=== PATIENT | male | born 1945 | race African-American/Black ===

== ENCOUNTER 2016-10-27 09:25 | Emergency (ER) | payer MEDICARE, OTHER ==
[2016-10-27 09:34] VITALS: BP 158/83
--- NOTE | 2016-10-27 09:40 | ER Document Report ---
ED Fall - General Chief Complaint: Head Injury with LOC Stated Complaint: FELL/SHOULDER PAIN Time Seen by Provider: 10/27/16 09:39 Notes: The patient is a 71-year-old male, past medical history DVT (on Coumadin), presents with left shoulder pain and a head injury after he was dreaming and rolled off the side of his bed. He hit the left side of his head and left shoulder and had a brief LOC. He does not have a headache. Denies neck pain, numbness, tingling, chest pain, shortness of breath, abdominal pain, nausea, vomiting or fevers. TRAVEL OUTSIDE OF THE [place] IN LAST 30 DAYS: No - Related data Allergies/Adverse Reactions: Sulfa (Sulfonamide Antibiotics) Allergy (Verified 10/30/11 10:34) Past Medical History - General Information source: Patient - Social History Smoking Status: Current Every Day Smoker Family History: Reviewed & Not Pertinent Patient has suicidal ideation: No Patient has homicidal ideation: No - Past Medical History Cardiac Medical History: Reports: Hx Coronary Artery Disease, Hx Hypertension Pulmonary Medical History: Denies: Hx Tuberculosis Renal/ Medical History: Denies: Hx Peritoneal Dialysis Musculoskeltal Medical History: Reports Hx Arthritis Past Surgical History: Reports: Hx Abdominal Surgery, Hx Bowel Surgery - 2009 for bowel obstruction. Denies: Hx Appendectomy, Hx Cholecystectomy, Hx Coronary Artery Bypass Graft, Hx Gastric Bypass Surgery, Hx Herniorrhaphy, Hx Pacemaker, Hx Tonsillectomy - Immunizations Hx Diphtheria, Pertussis, Tetanus Vaccination: No Review of Systems - Review of Systems Notes: REVIEW OF SYSTEMS: CONSTITUTIONAL: -fevers, -chills EENT: -eye pain, -difficulty swallowing, -nasal congestion CARDIOVASCULAR:-chest pain, -syncope. RESPIRATORY: -cough, -SOB GASTROINTESTINAL: -abdominal pain, - nausea, -vomiting, -diarrhea GENITOURINARY: -dysuria, -hematuria MUSCULOSKELETAL: +left shoulder pain, -back pain, -neck pain SKIN: -rash or skin lesions. HEMATOLOGIC: -easy bruising or bleeding. LYMPHATIC: -swollen, enlarged glands. NEUROLOGICAL: -altered mental status or loss of consciousness, -headache, - neurologic symptoms PSYCHIATRIC: -anxiety, -depression. ALL OTHER SYSTEMS REVIEWED AND NEGATIVE. Physical Exam - Vital signs Vitals: Pulse Resp BP Pulse Ox 91 16 158/83 H 97 10/27/16 09:32 10/27/16 09:32 10/27/16 09:32 10/27/16 09:32 - Notes Notes: PHYSICAL EXAMINATION: GENERAL: Well-appearing, well-nourished and in no acute distress. HEAD: Atraumatic, normocephalic. EYES: Pupils equal round and reactive to light, extraocular movements intact, sclera anicteric, conjunctiva are normal. ENT: nares patent, oropharynx clear without exudates. Moist mucous membranes. NECK: Normal range of motion, supple without lymphadenopathy LUNGS: Breath sounds clear to auscultation bilaterally and equal. No wheezes rales or rhonchi. HEART: Regular rate and rhythm without murmurs ABDOMEN: Soft, nontender, normoactive bowel sounds. No guarding, no rebound. No masses appreciated. EXTREMITIES: Tenderness over left lateral shoulder, painful range of motion, no pitting or edema. No cyanosis. NEUROLOGICAL: Cranial nerves grossly intact. Normal speech, normal gait. Normal sensory, motor, and reflex exams. PSYCH: Normal mood, normal affect. SKIN: Warm, Dry, normal turgor, no rashes or lesions noted. Course - Re-evaluation Re-evalutation: Patient without any neuro symptoms. CT head does not show any bleeds and left shoulder x-ray does not show any fractures or dislocations. Slight leukocytosis most likely reactive from fall because he does not have any signs of infection. Fall was strictly mechanical. Because patient is on Coumadin, discussed the possibility of delayed bleed and given return precautions. Him and his relative at bedside understand. - Vital Signs Vital signs: Temp Pulse Resp BP Pulse Ox 97.7 F 91 16 158/83 H 97 10/27/16 09:33 10/27/16 09:32 10/27/16 09:32 10/27/16 09:32 10/27/16 09:32 - Laboratory Result Diagrams: 10/27/16 10:05 Laboratory results interpreted by me: 10/27/16 10/27/16 10:05 10:05 WBC 12.3 H RDW 14.1 H Plt Count 136 L Absolute Neutrophils 9.2 H PT 25.8 H APTT 45.5 H - Diagnostic Test Radiology reviewed: Image reviewed, Reports reviewed Radiology results interpreted by me: CT Head: NAD Left shoulder x-ray: NAD Discharge - Discharge Clinical Impression: Head injury Qualifiers: Encounter type: initial encounter Qualified Code(s): S09.90XA - Unspecified injury of head, initial encounter Contusion of shoulder, left Qualifiers: Encounter type: initial encounter Qualified Code(s): S40.012A - Contusion of left shoulder, initial encounter Condition: Good Disposition: HOME, SELF-CARE Additional Instructions: Your CAT scan and x-rays do not show any head bleeds or broken bones. Since you are on Coumadin, there is always a possibility of a delayed head bleed. If you notice weakness, numbness or change in mental status, return immediately to the emergency room. Contusion Your injury has resulted in a contusion -- a crushing of the deep tissues. No injury to important structures was detected during the physician's exam. Contusions vary in the amount of pain they cause, and in the length of time required for healing. Typically, the area will become bruised, and will remain painful to touch for two or three weeks. However, most patients are back to working and playing within a few days. After the initial period of rest and cold-packs, your symptoms (together with the doctor's recommendations) will determine how rapidly you can get back to full activity. Usually this means "do what feels okay, but don't do things that hurt." If re-examination was recommended, it's important to follow up as instructed. Call the doctor or return any time if pain increases, if swelling becomes severe, if you develop numbness or weakness in an injured extremity, or if any other alarming symptoms occur. Head Injury Your examination shows no evidence of brain injury. You can therefore be safely observed at home. Give clear liquids only for the first eight hours. Acetaminophen or ibuprofen can safely be given for pain. Follow the directions on the bottle. Do not give any medication that may alter her/his level of alertness. Limit activity for the first 24 hours -- bed rest is advisable at first. Several times during the first 24 hours, check the patient to see if the pupils are equal in size to each other, that the patient is easily arousable, and responds normally. Contact your doctor or go to the hospital if any of the following things occur: Persistent or projectile vomiting, a seizure, confusion , unequal pupil size, difficulty in arousing the patient, worsening or continued headache, or failure to improve as expected.
[2016-10-27 10:15] LABS: ABSOLUTE EOSINOPHILS # (AUTO) 0.1 10^3/uL (0.0-0.6); ABSOLUTE LYMPHOCYTES (AUTO) 1.7 10^3/uL (0.5-4.7); ABSOLUTE MONOCYTES (AUTO) 1.2 10^3/uL (0.1-1.4); ABSOLUTE NEUT (AUTO) 9.2 10^3/uL (1.7-8.2); BASOPHILS % (AUTO) 0.4 % (0-2); EOSINOPHILS % (AUTO) 0.6 % (0-6); HEMATOCRIT 47.8 % (37.9-51.0); HEMOGLOBIN 15.9 g/dL (13.5-17.0); HGB HCT DIFFERENCE -0.1; MEAN CORPUSCULAR HEMOGLOBIN 30.8 pg (27.0-33.4); MEAN CORPUSCULAR HGB CONC 33.2 g/dL (32.0-36.0); MEAN CORPUSCULAR VOLUME 93 fl (80-97); MONOCYTES % (AUTO) 9.6 % (3-13); RED BLOOD COUNT 5.15 10^6/uL (4.35-5.55); RED CELL DISTRIBUTION WIDTH 14.1 % (11.5-14.0); SEGMENTED NEUTROPHILS % (AUTO) 75.4 % (42-78); WHITE BLOOD COUNT 12.3 10^3/uL (4.0-10.5)
[2016-10-27 10:21] LABS: PROTHROMBIN TIME 25.8 SEC (11.4-15.4)
[2016-10-27 10:22] LABS: PARTIAL THROMBOPLASTIN TIME 45.5 SEC (23.5-35.8)
== END 2016-10-27 11:09 | disposition home or self-care (01) ==
LOC: ER 09:25
DX: S06.9X9A Unspecified intracranial injury with loss of consciousness of unspecified duration, initial encounter (principal); S40.012A Contusion of left shoulder, initial encounter; M25.512 Pain in left shoulder; W06.XXXA Fall from bed, initial encounter; Y93.84 Activity, sleeping; I10 Essential (primary) hypertension; I25.10 Atherosclerotic heart disease of native coronary artery without angina pectoris; F17.200 Nicotine dependence, unspecified, uncomplicated; D72.829 Elevated white blood cell count, unspecified; Z86.718 Personal history of other venous thrombosis and embolism; Z79.01 Long term (current) use of anticoagulants; Z88.2 Allergy status to sulfonamides
CPT/HCPCS: 36415; 70450; 85025; 85610; 85730; 99284

== ENCOUNTER 2017-08-18 09:55 | Emergency (ER) | payer MEDICARE, OTHER ==
--- NOTE | 2017-08-18 10:39 | ER Document Report ---
ED Dizziness/Weakness - General Chief Complaint: Dizziness Stated Complaint: VOMITING Time Seen by Provider: 08/18/17 10:33 Information source: Patient Notes: Patient is a 72-year-old poor historian who presents today stating when he woke up he felt a little "lightheaded". He denies any vertigo. He states he vomited 1 with diarrhea 1. No blood in the vomit or diarrhea. Patient denies any chest pain, palpitations, and states some very mild intermittent epigastric discomfort before vomiting. He denies any radiation of the discomfort. He denies any pain at this time. Denies any calf pain, leg swelling, recent trips or travel. He denies any fevers. Patient has a remote history in the past of an obstruction in the bowel requiring surgery. Patient is also on Coumadin he believes is for "my upper heart not working right". Family believes this was for atrial fibrillation that he suffers intermittently. TRAVEL OUTSIDE OF THE [place] IN LAST 30 DAYS: No - HPI Patient complains to provider of: Other - See above Onset: Just prior to arrival - See above Onset/Duration: Gradual Quality of pain: Achy Severity: Mild Pain Level: Denies Associated symptoms: Other - See above - Related Data Allergies/Adverse Reactions: Sulfa (Sulfonamide Antibiotics) Allergy (Verified 08/18/17 09:56) Past Medical History - General Information source: Patient - Social History Smoking Status: Unknown if Ever Smoked Cigarette use (# per day): No Chew tobacco use (# tins/day): No Smoking Education Provided: No Frequency of alcohol use: None Drug Abuse: None Family History: Reviewed & Not Pertinent - Past Medical History Cardiac Medical History: Reports: Hx Coronary Artery Disease, Hx Hypertension Pulmonary Medical History: Denies: Hx Tuberculosis Renal/ Medical History: Denies: Hx Peritoneal Dialysis Musculoskeltal Medical History: Reports Hx Arthritis Past Surgical History: Reports: Hx Abdominal Surgery, Hx Bowel Surgery - 2009 for bowel obstruction. Denies: Hx Appendectomy, Hx Cholecystectomy, Hx Coronary Artery Bypass Graft, Hx Gastric Bypass Surgery, Hx Herniorrhaphy, Hx Pacemaker, Hx Tonsillectomy - Immunizations Hx Diphtheria, Pertussis, Tetanus Vaccination: No Review of Systems - Review of Systems Constitutional: denies: Fever EENT: denies: Eye discharge, Nose discharge Cardiovascular: denies: Chest pain, Palpitations Respiratory: denies: Short of breath Gastrointestinal: Diarrhea, Vomiting Genitourinary: denies: Dysuria Musculoskeletal: denies: Leg swelling Skin: Other - no hives. denies: Rash Neurological/Psychological: Other - no slurred speech -: Yes All other systems reviewed and negative Physical Exam - Vital signs Vitals: Resp Pulse Ox 18 100 08/18/17 10:19 08/18/17 10:19 Interpretation: Normal Notes: Reviewed vital signs and nursing note as charted by RN. CONSTITUTIONAL: Alert and oriented and responds appropriately to questions. Well -appearing; well-nourished HEAD: Normocephalic; atraumatic EYES: PERRL; no nystagmus ENT: Normal nose; no rhinorrhea; moist mucous membranes; pharynx without lesions noted NECK: Supple without meningismus; non-tender; no carotid bruits; no cervical lymphadenopathy, no masses CARD: Regular rate and rhythm; no murmurs RESP: Normal chest excursion without splinting or tachypnea; breath sounds clear and equal bilaterally ABD/GI: Normal bowel sounds; non-distended; soft, non-tender currently to deep palpation of all 4 quadrants of the abdomen. There no abdominal bruits or masses present BACK: The back appears normal and is non-tender to palpation EXT: Normal ROM in all joints; non-tender to palpation; no cyanosis, no effusions, no edema SKIN: No acute lesions noted NEURO: Cn 2-12 intact. Moves all extremities equally; Motor and sensory function intact PSYCH: The patient's mood and manner are appropriate. Grooming and personal hygiene are appropriate Course - Re-evaluation Re-evalutation: Given the history and physical we will obtain basic labs, abdominal labs, EKG and troponin, coagulation profile, a CT of the head, and reassess. I will also order a three-way abdominal x-ray. Patient has no chest pain, currently no abdominal tenderness, no focal neurological deficits. I would like to evaluate for possible small bleed, cardiac issue, or abdominal issue at this time. 08/18/17 10:43 EKG shows a heart of 71, normal sinus rhythm, normal axis, minimal J-point elevation in leads V2 and V3 without any reciprocal changes. Patient currently has no chest pain. 08/18/17 11:29 Labs and troponin as recorded. 08/18/17 11:44 CT scan of the head as recorded. 08/18/17 11:46 Patient walked to the bathroom and back with no difficulty. He denies any chest or abdominal pain at this time. 08/18/17 13:52 Patient still feels excellent. Second troponin is pending. Patient still denies any headache or lightheadedness. No repeat vomiting or diarrhea. Patient has had no symptoms of vertigo. I do not believe an MRI is necessary at this moment. If the repeat troponin is unremarkable, patient will be discharged home with strict return precautions and follow-up with the primary care physician. - Vital Signs Vital signs: Temp Pulse Resp BP Pulse Ox 97.5 F 20 168/95 H 96 08/18/17 10:37 08/18/17 13:00 08/18/17 10:38 08/18/17 13:00 - Laboratory Result Diagrams: 08/18/17 10:20 08/18/17 10:20 Laboratory results interpreted by me: 08/18/17 08/18/17 10:20 11:30 RDW 14.8 H PT 22.4 H Discharge - Discharge Clinical Impression: Lightheadedness, Vomiting and diarrhea Condition: Good Disposition: HOME, SELF-CARE Additional Instructions: Come back immediately for any repeat lightheadedness, any chest or abdominal pain, any persistent vomiting or diarrhea, or any other acute problems. Please follow-up with the primary care physician as we have discussed.
[2017-08-18 11:03] LABS: ABSOLUTE LYMPHOCYTES (AUTO) 1.6 10^3/uL (0.5-4.7); ABSOLUTE MONOCYTES (AUTO) 0.7 10^3/uL (0.1-1.4); ABSOLUTE NEUT (AUTO) 4.6 10^3/uL (1.7-8.2); BASOPHILS % (AUTO) 0.6 % (0-2); EOSINOPHILS % (AUTO) 0.6 % (0-6); HEMATOCRIT 48.2 % (37.9-51.0); LYMPHOCYTES % (AUTO) 22.8 % (13-45); MEAN CORPUSCULAR HEMOGLOBIN 30.4 pg (27.0-33.4); MEAN CORPUSCULAR HGB CONC 33.3 g/dL (32.0-36.0); MEAN CORPUSCULAR VOLUME 92 fl (80-97); MONOCYTES % (AUTO) 9.5 % (3-13); PLATELET COUNT 159 10^3/uL (150-450); RED BLOOD COUNT 5.26 10^6/uL (4.35-5.55); RED CELL DISTRIBUTION WIDTH 14.8 % (11.5-14.0); SEGMENTED NEUTROPHILS % (AUTO) 66.5 % (42-78); TOTAL CELLS COUNTED % (AUTO) 100 %
[2017-08-18 11:10] LABS: ALANINE AMINOTRANSFERASE 34 U/L (21-72); ALBUMIN 4.3 g/dL (3.5-5.0); ALKALINE PHOSPHATASE 40 U/L (38-126); ANION GAP 8 (5-19); ASPARTATE AMINO TRANSFERASE 29 U/L (17-59); BILIRUBIN,DIRECT 0.1 mg/dL (0.0-0.4); BILIRUBIN,TOTAL 0.4 mg/dL (0.2-1.3); BLOOD UREA NITROGEN 14 mg/dL (7-20); CALCIUM 9.7 mg/dL (8.4-10.2); CARBON DIOXIDE 29 mmol/L (22-30); CHLORIDE 105 mmol/L (98-107); GLUCOSE 108 mg/dL (75-110); LIPASE 255.6 U/L (23-300); POTASSIUM 4.1 mmol/L (3.6-5.0); SODIUM 141.6 mmol/L (137-145)
--- NOTE | 2017-08-18 11:25 | RADIOLOGY REPORT (SQ) ---
EXAM DESCRIPTION: ACUTE ABDOMEN SERIES COMPLETED DATE/TIME: 08/18/2017 11:03 am REASON FOR STUDY: 18, vomiting and diarrhea; h/o obstruction COMPARISON: None. NUMBER OF VIEWS: Three views. TECHNIQUE: Frontal chest, supine abdomen and upright/decubitus abdomen radiographic images acquired. LIMITATIONS: None. FINDINGS: CHEST: Nodular density right lower lung could be a nodule or nipple shadow. FREE AIR: None. No abnormal gas collections. BOWEL GAS PATTERN: Nonobstructive pattern. No dilated loops or air fluid levels. CALCIFICATIONS: No suspicious calcifications. HARDWARE: Clips left lower quadrant and pelvis. SOFT TISSUES: No gross mass or suggestion of organomegaly. BONES: No acute fracture. No worrisome bone lesions. OTHER: No other significant finding. IMPRESSION: No obstruction. Questionable small lung nodule. Consider two-view chest with nipple ma rkers or chest CT. TECHNICAL DOCUMENTATION: JOB ID: [id number] [employer]- All Rights Reserved Reading location - IP/workstation name: [email or web address]
--- NOTE | 2017-08-18 11:32 | RADIOLOGY REPORT (SQ) ---
EXAM DESCRIPTION: CT HEAD WITHOUT COMPLETED DATE/TIME: 08/18/2017 11:22 am REASON FOR STUDY: 18, dizzi on coumadin COMPARISON: None. TECHNIQUE: Axial images acquired through the brain without intravenous contrast. Images reviewed wi th bone, brain and subdural windows. Images stored on PACS. All CT scanners at this facility use dose modulation, iterative reconstruction, and/or weight based d osing when appropriate to reduce radiation dose to as low as reasonably achievable (ALARA). [facility]: Dose Right [facility]: CareDose [facility]: Dose Right [facility]: Teradose 4D [facility]: [employer] RADIATION DOSE: CT Rad equipment meets quality standard of care and radiation dose reduction techniq ues were employed. CTDIvol: 64.6 mGy. DLP: 1163 mGy-cm. mGy. LIMITATIONS: None. FINDINGS: VENTRICLES: Normal size and contour. CEREBRUM: No masses. No hemorrhage. No midline shift. No evidence for acute infarction. Normal gra y/white matter differentiation. No areas of low density in the white matter. CEREBELLUM: No masses. No hemorrhage. No alteration of density. No evidence for acute infarction. EXTRAAXIAL SPACES: No fluid collections. No masses. ORBITS AND GLOBE: No intra- or extraconal masses. Normal contour of globe without masses. CALVARIUM: No fracture. PARANASAL SINUSES: No fluid or mucosal thickening. SOFT TISSUES: No mass or hematoma. OTHER: No other significant finding. IMPRESSION: NORMAL BRAIN CT WITHOUT CONTRAST. EVIDENCE OF ACUTE STROKE: NO. COMMENT: Quality ID # [id number]: Final reports with documentation of one or more dose reduction techniques (e.g., Automated exposure control, adjustment of the mA and/or kV according to patient size, use of iterative reconstruction technique) TECHNICAL DOCUMENTATION: JOB ID: [id number] [employer]- All Rights Reserved Reading location - IP/workstation name: [email or web address]
[2017-08-18] MEDS ORDERED: ONDANSETRON HCL INJ/PF 4 MG/2 ML SDV IV ONE (11:44)
[2017-08-18 11:49] LABS: INTERNATIONAL RATION (INR) 1.85; PROTHROMBIN TIME 22.4 SEC (11.4-15.4)
[2017-08-18 14:36] VITALS: BP 160/98
--- NOTE | 2017-08-18 17:58 | EKG REPORT ---
SEVERITY:- BORDERLINE ECG - SINUS RHYTHM BORDERLINE ST ELEVATION, ANTERIOR LEADS, UNCHANGED FROM 08/24/14 EKG. : Confirmed by: Vishnu Nichols MD 18-Aug-2017 17:57:56
== END 2017-08-18 14:43 | disposition home or self-care (01) ==
LOC: ER 09:55
DX: R42 Dizziness and giddiness (principal); R11.10 Vomiting, unspecified; R19.7 Diarrhea, unspecified; I25.10 Atherosclerotic heart disease of native coronary artery without angina pectoris; I10 Essential (primary) hypertension; Z87.19 Personal history of other diseases of the digestive system; Z98.890 Other specified postprocedural states; Z79.01 Long term (current) use of anticoagulants; Z88.2 Allergy status to sulfonamides
CPT/HCPCS: 93005; 99285; 96374; 36415; 83690; 85025; 85610; 80076; 80048; 84484; 74022; 70450; 93010; J2405

== ENCOUNTER 2018-05-13 11:46 | Observation (INO) | payer MEDICARE, OTHER ==
--- NOTE | 2018-05-13 12:44 | ER Document Report ---
ED Medical Screen (RME) - General Chief Complaint: Diarrhea Stated Complaint: DIARRHEA Time Seen by Provider: 05/13/18 12:41 Notes: 72-year-old male patient reports onset diarrhea Saturday night. States he has diarrhea about every 30 minutes. He has had decreased appetite and some dizziness. He states the diarrhea looks like what ever it was the most recently had to eat. He did try Pepto-Bismol without any help. No recent antibiotics. I have greeted and performed a rapid initial assessment of this patient. A comprehensive ED assessment and evaluation of the patient, analysis of test results and completion of the medical decision making process will be conducted by additional ED providers. TRAVEL OUTSIDE OF THE [place] IN LAST 30 DAYS: No - Related Data Allergies/Adverse Reactions: Sulfa (Sulfonamide Antibiotics) Allergy (Verified 08/18/17 09:56) Past Medical History - Past Medical History Cardiac Medical History: Reports: Hx Coronary Artery Disease, Hx Hypertension Pulmonary Medical History: Denies: Hx Tuberculosis Renal/ Medical History: Denies: Hx Peritoneal Dialysis Musculoskeltal Medical History: Reports Hx Arthritis Past Surgical History: Reports: Hx Abdominal Surgery, Hx Bowel Surgery - 2010 for bowel obstruction. Denies: Hx Appendectomy, Hx Cholecystectomy, Hx Coronary Artery Bypass Graft, Hx Gastric Bypass Surgery, Hx Herniorrhaphy, Hx Pacemaker, Hx Tonsillectomy - Immunizations Hx Diphtheria, Pertussis, Tetanus Vaccination: No Physical Exam - Vital signs Vitals: Temp Pulse Resp BP Pulse Ox 97.4 F 92 20 129/73 H 98 05/13/18 12:03 05/13/18 12:03 05/13/18 12:03 05/13/18 12:03 05/13/18 12:03 Course - Vital Signs Vital signs: Temp Pulse Resp BP Pulse Ox 97.4 F 92 20 129/73 H 98 05/13/18 12:03 05/13/18 12:03 05/13/18 12:03 05/13/18 12:03 05/13/18 12:03 Doctor's Discharge - Discharge Referrals: EDUARDO DHILLON MD [Primary Care Provider] - Follow up as needed
[2018-05-13 13:19] LABS: APPEARANCE,URINE SLIGHTLY-CLOUDY; BILIRUBIN,URINE NEGATIVE (NEGATIVE); GLUCOSE, URINE NEGATIVE (NEGATIVE); KETONES,URINE 20 mg/dL (NEGATIVE); LEUKOCYTE ESTERASE,URINE NEGATIVE (NEGATIVE); NITRITE,URINE NEGATIVE (NEGATIVE); PROTEIN,URINE 30 mg/dL (NEGATIVE); URINE SPECIFIC GRAVITY 1.027; UROBILINOGEN,URINE NEGATIVE mg/dL (<2.0)
[2018-05-13 13:23] LABS: COLOR,URINE YELLOW
[2018-05-13] MEDS ORDERED: NORMAL SALINE 1000 ML 1,000 ML IV ONE ×2 (13:36→14:55)
--- NOTE | 2018-05-13 13:40 | ER Document Report ---
ED General - General Chief Complaint: Diarrhea Stated Complaint: DIARRHEA Time Seen by Provider: 05/13/18 12:41 TRAVEL OUTSIDE OF THE [place] IN LAST 30 DAYS: No - HPI Notes: Patient is a 72-year-old male that presents to the emergency department for chief complaint of diarrhea and lightheadedness. Patient reports diarrhea for the last 3 days. He states about every 20-30 minutes he has a small loose stool. He denies any black or bloody stools. Patient also states that for the last 2 days he has felt very lightheaded. His lightheadedness is worse with standing and relieved with sitting. When he feels lightheaded he becomes hot and nauseated. He denies any associated chest pain, shortness of breath, abdominal pain, fevers or chills. He denies recent antibiotic use or hospitalizations. He states he has not been able to eat or drink over the last 2 days because of nausea. Patient states he does take a blood thinner but is not sure what it is called or why he is taking it. Past Medical History: Hyperlipidemia Past Surgical History: Bowel obstruction surgery Social History: Daily tobacco. Denies drugs and alcohol Family History: Reviewed and noncontributory for presenting illness Allergies: Reviewed, see documented allergy list. REVIEW OF SYSTEMS: CONSTITUTIONAL : No fever No chills No diaphoresis No recent illness EENT: No vision changes No congestion No sore throat CARDIOVASCULAR: No chest pain No palpitations RESPIRATORY: No shortness of breath No cough No difficulty breathing GASTROINTESTINAL: No abdominal pain nausea No vomiting diarrhea GENITOURINARY: No dysuria No hematuria No difficulty urinating MUSCULOSKELETAL: No back pain No leg pain No arm pain SKIN: No rashes No lesions LYMPHATIC: No swollen, enlarged glands. NEUROLOGICAL: lightheadedness No headache No weakness No paresthesias PSYCHIATRIC: No anxiety No depression PHYSICAL EXAMINATION: Vital signs reviewed, nursing noted reviewed. GENERAL: Well-appearing, well-nourished and in no acute distress. HEAD: Atraumatic, normocephalic. EYES: Eyes appear normal, extraocular movements intact, sclera anicteric, conjunctiva are normal. ENT: nares patent, oropharynx clear without exudates. Dry mucous membranes. NECK: Normal range of motion, supple without lymphadenopathy LUNGS: Breath sounds clear to auscultation bilaterally and equal. No wheezes rales or rhonchi. HEART: Regular rate and rhythm without murmurs ABDOMEN: Soft, nontender, normoactive bowel sounds. No rebound, guarding, or rigidity. No masses appreciated. EXTREMITIES: Nontender, good range of motion, no pitting or edema. NEUROLOGICAL: No focal neurological deficits. Moves all extremities spontaneously Motor and sensory grossly intact on exam. PSYCH: Normal mood, normal affect. SKIN: Warm, Dry, normal turgor, no rashes or lesions noted on exposed skin - Related Data Allergies/Adverse Reactions: Sulfa (Sulfonamide Antibiotics) Allergy (Verified 08/18/17 09:56) Past Medical History - Social History Smoking Status: Current Every Day Smoker Frequency of alcohol use: None Drug Abuse: None Family History: Reviewed & Not Pertinent Patient has suicidal ideation: No Patient has homicidal ideation: No - Past Medical History Cardiac Medical History: Reports: Hx Coronary Artery Disease, Hx Hypertension Pulmonary Medical History: Denies: Hx Tuberculosis Renal/ Medical History: Denies: Hx Peritoneal Dialysis Musculoskeletal Medical History: Reports Hx Arthritis Past Surgical History: Reports: Hx Abdominal Surgery, Hx Bowel Surgery - 2009 for bowel obstruction. Denies: Hx Appendectomy, Hx Cholecystectomy, Hx Coronary Artery Bypass Graft, Hx Gastric Bypass Surgery, Hx Herniorrhaphy, Hx Pacemaker, Hx Tonsillectomy - Immunizations Hx Diphtheria, Pertussis, Tetanus Vaccination: No Physical Exam - Vital signs Vitals: Temp Pulse Resp BP Pulse Ox 97.4 F 92 20 129/73 H 98 05/13/18 12:03 05/13/18 12:03 05/13/18 12:03 05/13/18 12:03 05/13/18 12:03 Course - Re-evaluation Re-evalutation: 05/13/18 13:39 Vitals reviewed. Nursing notes reviewed. Patient started on IV hydration 05/13/18 16:07 Patient's lab work shows dehydration with hemoconcentrated hemoglobin of 16.3. He also has a mild hypernatremia. His renal function is normal as is his potassium. Patient is orthostatic positive and was given a second liter of normal saline. He is Hemoccult positive and anticoagulated on Coumadin. Patient's INR is subtherapeutic at 1.6. He has not had any bright red or melanotic bleeding in the ED. C. difficile and stool culture is currently pending. Patient has a normal WBC count so I am not highly suspicious for an infectious cause of his diarrhea. Because of his anticoagulation, GI bleed and orthostasis he will be admitted to the hospital for hydration and monitoring. Case discussed with Dr. Leija who is accepted admission. Patient is in agreement with this plan. Laboratory 05/13/18 05/13/18 05/13/18 12:50 12:50 13:26 WBC RBC Hgb Hct MCV MCH MCHC RDW Plt Count Seg Neutrophils % Lymphocytes % Monocytes % Eosinophils % Basophils % Absolute Neutrophils Absolute Lymphocytes Absolute Monocytes Absolute Eosinophils Absolute Basophils PT INR Sodium Cancelled 145.8 H Potassium Cancelled 3.8 Chloride Cancelled 109 H Carbon Dioxide Cancelled 24 Anion Gap Cancelled 13 BUN Cancelled 18 Creatinine Cancelled 0.89 Est GFR ( Amer) Cancelled > 60 Est GFR (Non-Af Amer) Cancelled > 60 Glucose Cancelled 99 Calcium Cancelled 9.4 Total Bilirubin Cancelled 0.3 Direct Bilirubin Cancelled 0.1 Neonat Total Bilirubin Cancelled Not Reportable Neonat Direct Bilirubin Cancelled Not Reportable Neonat Indirect Bili Cancelled Not Reportable AST Cancelled 39 ALT Cancelled 28 Alkaline Phosphatase Cancelled 53 Troponin I Total Protein Cancelled 7.1 Albumin Cancelled 3.9 Urine Color YELLOW Urine Appearance SLIGHTLY-CLOUDY Urine pH 5.0 Ur Specific [place] 1.027 Urine Protein 30 H Urine Glucose (UA) NEGATIVE Urine Ketones 20 H Urine Blood NEGATIVE Urine Nitrite NEGATIVE Urine Bilirubin NEGATIVE Urine Urobilinogen NEGATIVE Ur Leukocyte Esterase NEGATIVE Urine WBC (Auto) 2 Urine RBC (Auto) 1 Squamous Epi Cells Auto 1 Urine Mucus (Auto) MANY Urine Ascorbic Acid NEGATIVE Stool Occult Blood Stool for White Cells C. difficile Tox (PCR) 05/13/18 05/13/18 05/13/18 13:38 13:38 13:38 WBC 9.7 RBC 5.20 Hgb 16.3 Hct 47.7 MCV 92 MCH 31.3 MCHC 34.1 RDW 14.0 Plt Count 129 L Seg Neutrophils % 78.3 H Lymphocytes % 8.8 L Monocytes % 12.3 Eosinophils % 0.1 Basophils % 0.5 Absolute Neutrophils 7.6 Absolute Lymphocytes 0.9 Absolute Monocytes 1.2 Absolute Eosinophils 0.0 Absolute Basophils 0.0 PT 19.9 H INR 1.61 Sodium Potassium Chloride Carbon Dioxide Anion Gap BUN Creatinine Est GFR ( Amer) Est GFR (Non-Af Amer) Glucose Calcium Total Bilirubin Direct Bilirubin Neonat Total Bilirubin Neonat Direct Bilirubin Neonat Indirect Bili AST ALT Alkaline Phosphatase Troponin I < 0.012 Total Protein Albumin Urine Color Urine Appearance Urine pH Ur Specific [place] Urine Protein Urine Glucose (UA) Urine Ketones Urine Blood Urine Nitrite Urine Bilirubin Urine Urobilinogen Ur Leukocyte Esterase Urine WBC (Auto) Urine RBC (Auto) Squamous Epi Cells Auto Urine Mucus (Auto) Urine Ascorbic Acid Stool Occult Blood Stool for White Cells C. difficile Tox (PCR) 05/13/18 05/13/18 05/13/18 14:30 14:30 14:30 WBC RBC Hgb Hct MCV MCH MCHC RDW Plt Count Seg Neutrophils % Lymphocytes % Monocytes % Eosinophils % Basophils % Absolute Neutrophils Absolute Lymphocytes Absolute Monocytes Absolute Eosinophils Absolute Basophils PT INR Sodium Potassium Chloride Carbon Dioxide Anion Gap BUN Creatinine Est GFR ( Amer) Est GFR (Non-Af Amer) Glucose Calcium Total Bilirubin Direct Bilirubin Neonat Total Bilirubin Neonat Direct Bilirubin Neonat Indirect Bili AST ALT Alkaline Phosphatase Troponin I Total Protein Albumin Urine Color Urine Appearance Urine pH Ur Specific [place] Urine Protein Urine Glucose (UA) Urine Ketones Urine Blood Urine Nitrite Urine Bilirubin Urine Urobilinogen Ur Leukocyte Esterase Urine WBC (Auto) Urine RBC (Auto) Squamous Epi Cells Auto Urine Mucus (Auto) Urine Ascorbic Acid Stool Occult Blood POSITIVE Stool for White Cells MODERATE H C. difficile Tox (PCR) NEGATIVE - Vital Signs Vital signs: Temp Pulse Resp BP Pulse Ox 97.4 F 92 20 129/73 H 98 05/13/18 12:03 05/13/18 12:03 05/13/18 12:03 05/13/18 12:03 05/13/18 12:03 - Laboratory Result Diagrams: 05/13/18 13:38 05/13/18 13:26 Laboratory results interpreted by me: 05/13/18 05/13/18 05/13/18 12:50 13:26 13:38 Plt Count 129 L Seg Neutrophils % 78.3 H Lymphocytes % 8.8 L PT Sodium 145.8 H Chloride 109 H Urine Protein 30 H Urine Ketones 20 H Stool for White Cells 05/13/18 05/13/18 13:38 14:30 Plt Count Seg Neutrophils % Lymphocytes % PT 19.9 H Sodium Chloride Urine Protein Urine Ketones Stool for White Cells MODERATE H - EKG Interpretation by Me Additional EKG results interpreted by me: 05/13/18 13:56 Interpreted by myself 1343: Normal sinus rhythm, rate 79, normal axis, no ectopy, no STEMI, unchanged from 08/18/2017 Discharge - Discharge Clinical Impression: Orthostatic dizziness, Dehydration, Hypernatremia GI bleed Qualifiers: GI bleed type/associated pathology: unspecified gastrointestinal hemorrhage type Qualified Code(s): K92.2 - Gastrointestinal hemorrhage, unspecified Diarrhea Qualifiers: Diarrhea type: unspecified type Qualified Code(s): R19.7 - Diarrhea, unspecified Condition: Stable Disposition: ADMITTED OBSERVATION Admitting Provider: [facility] Admitted: Medical Floor
[2018-05-13 13:56] LABS: INTERNATIONAL RATION (INR) 1.61; PROTHROMBIN TIME 19.9 SEC (11.4-15.4)
[2018-05-13 14:01] LABS: ABSOLUTE LYMPHOCYTES (AUTO) 0.9 10^3/uL (0.5-4.7); ABSOLUTE MONOCYTES (AUTO) 1.2 10^3/uL (0.1-1.4); ABSOLUTE NEUT (AUTO) 7.6 10^3/uL (1.7-8.2); BASOPHILS % (AUTO) 0.5 % (0-2); EOSINOPHILS % (AUTO) 0.1 % (0-6); HEMATOCRIT 47.7 % (37.9-51.0); HEMOGLOBIN 16.3 g/dL (13.5-17.0); LYMPHOCYTES % (AUTO) 8.8 % (13-45); MEAN CORPUSCULAR HEMOGLOBIN 31.3 pg (27.0-33.4); MEAN CORPUSCULAR HGB CONC 34.1 g/dL (32.0-36.0); MEAN CORPUSCULAR VOLUME 92 fl (80-97); MONOCYTES % (AUTO) 12.3 % (3-13); PLATELET COUNT 129 10^3/uL (150-450); SEGMENTED NEUTROPHILS % (AUTO) 78.3 % (42-78); TOTAL CELLS COUNTED % (AUTO) 100 %; WHITE BLOOD COUNT 9.7 10^3/uL (4.0-10.5)
[2018-05-13 14:04] LABS: ALANINE AMINOTRANSFERASE 28 U/L (21-72); ALBUMIN 3.9 g/dL (3.5-5.0); ALKALINE PHOSPHATASE 53 U/L (38-126); ANION GAP 13 (5-19); ASPARTATE AMINO TRANSFERASE 39 U/L (17-59); BILIRUBIN,DIRECT 0.1 mg/dL (0.0-0.4); BILIRUBIN,TOTAL 0.3 mg/dL (0.2-1.3); BLOOD UREA NITROGEN 18 mg/dL (7-20); CALCIUM 9.4 mg/dL (8.4-10.2); CARBON DIOXIDE 24 mmol/L (22-30); CHLORIDE 109 mmol/L (98-107); GLUCOSE 99 mg/dL (75-110); POTASSIUM 3.8 mmol/L (3.6-5.0); SODIUM 145.8 mmol/L (137-145); TOTAL PROTEIN 7.1 g/dL (6.3-8.2)
[2018-05-13] MEDS ORDERED: FAMOTIDINE INJ/PF 20 MG/2 ML SDV IV ONE (15:27)
[2018-05-13] MEDS ORDERED: ONDANSETRON HCL INJ/PF 4 MG/2 ML SDV IV PRN (17:00)
[2018-05-13] MEDS ORDERED: ZOLPIDEM TARTRATE 5 MG TABLET PO PRN (17:00)
[2018-05-13] MEDS ORDERED: 1/2 NORMAL SALINE 1,000 ML IV PRN (17:00)
[2018-05-13] MEDS ORDERED: ACETAMINOPHEN 325 MG TABLET PO PRN (17:00)
[2018-05-13] MEDS ORDERED: HYDROCODONE/ACETAMINOPHEN 5-325 MG TABLET PO PRN (17:21)
--- NOTE | 2018-05-13 17:21 | PDOC H&P ---
History of Present Illness Admission Date/PCP: 05/13/18 16:16 EDUARDO DHILLON Patient complains of: Diarrhea, weakness, dizziness, anorexia, nausea for 2 days. History of Present Illness: NICO SHIPLEY is a 72 year old male with hx of HTN/Hyperlipidemia/A-fib/Back pain/Hip pain/Vitamin D def./ Ca prostate s.p surgery, who started having persistent diarrhea every 30 minutes since past 2 days; associated nausea, dizziness, weakness and anorexia. No response to Pepto Bismol, hence he came to ER for evaluation and mgt. Past Medical History Cardiac Medical History: Reports: Coronary Artery Disease, Hypertension Pulmonary Medical History: Denies: Tuberculosis Musculoskeltal Medical History: Reports: Arthritis Past Surgical History Past Surgical History: Denies: Appendectomy, Cholecystectomy, Coronary Artery Bypass Graft, Gastric Bypass Surgery, Herniorrhaphy, Pacemaker, Tonsillectomy Social History Smoking Status: Current Every Day Smoker Hx Recreational Drug Use: No Hx Prescription Drug Abuse: No Family History Family History: Reviewed & Not Pertinent Parental Family History Reviewed: Yes Children Family History Reviewed: Yes Sibling(s) Family History Reviewed.: Yes Medication/Allergy Home Medications: Pravastatin Sodium [Pravachol] 20 mg PO QHS 11/01/11 Warfarin Sodium [Coumadin] 10 mg PO QHS 11/01/11 Cholecalciferol (Vitamin D3) [Vitamin D3] 1 cap PO DAILY 08/18/17 Allergies/Adverse Reactions: Sulfa (Sulfonamide Antibiotics) Allergy (Verified 08/18/17 09:56) Review of Systems All systems: as per PMH Constitutional: PRESENT: as per HPI, anorexia, weakness Eyes: PRESENT: as per HPI Ears: PRESENT: as per HPI Nose, Mouth, and Throat: PRESENT: as per HPI Cardiovascular: PRESENT: as per HPI Gastrointestinal: PRESENT: as per HPI, diarrhea, nausea Genitourinary: PRESENT: as per HPI Integumentary: PRESENT: as per HPI Neurological: PRESENT: as per HPI, dizziness, weakness Psychiatric: PRESENT: as per HPI Endocrine: PRESENT: as per HPI Hematologic/Lymphatic: PRESENT: as per HPI Physical Exam Vital Signs: Temp Pulse Resp BP Pulse Ox 97.4 F 92 20 129/73 H 98 05/13/18 12:03 05/13/18 12:03 05/13/18 12:03 05/13/18 12:03 05/13/18 12:03 General appearance: PRESENT: no acute distress, cooperative, well-developed, well-nourished Head exam: PRESENT: atraumatic, normocephalic Eye exam: PRESENT: EOMI, PERRLA Additional comments: Dry oral mucosa. Ear exam: PRESENT: normal external ear exam, TM's normal bilaterally Mouth exam: PRESENT: dry mucosa, neck supple Neck exam: PRESENT: full ROM Respiratory exam: PRESENT: clear to auscultation victor m, symmetrical Cardiovascular exam: PRESENT: irregular rhythm, +S1, +S2 Pulses: PRESENT: +2 pedal pulses bilateral GI/Abdominal exam: PRESENT: normal bowel sounds, soft Rectal exam: PRESENT: heme (+) stool Extremities exam: PRESENT: full ROM Musculoskeletal exam: PRESENT: ambulatory Neurological exam: PRESENT: alert, awake, oriented to time, CN II-XII grossly intact Psychiatric exam: PRESENT: normal mood Assessment & Plan - Diagnosis (1) Gastroenteritis Is this a current diagnosis for this admission?: Yes Plan: Ct with IV fluids 1/2 normal saline at 100 cc/hour; Zofran 4 mg q4h IV prn. Monitor chemistries daily. (2) Hypernatremia Is this a current diagnosis for this admission?: Yes Plan: Ct with IV fluids 1/2 noram saline at 100 cc/hr; monitor chemistries daily. (3) Atrial fibrillation Qualifiers: Atrial fibrillation type: paroxysmal Qualified Code(s): I48.0 - Paroxysmal atrial fibrillation Is this a current diagnosis for this admission?: Yes Plan: Ct with Warfarin 10 mg qd po; Monitor INR daily. (4) Hypertension Qualifiers: Hypertension type: essential hypertension Qualified Code(s): I10 - Essential (primary) hypertension Is this a current diagnosis for this admission?: Yes Plan: Ct with 2 g sodium diet. (5) Hyperlipidemia Qualifiers: Hyperlipidemia type: mixed hyperlipidemia Qualified Code(s): E78.2 - Mixed hyperlipidemia Is this a current diagnosis for this admission?: Yes Plan: Ct with Pravastatin 20 mg qhs po; 200 mg cholesterol diet. (6) Lumbago Is this a current diagnosis for this admission?: Yes Plan: Ct with [place] 5/325 1 BID prn po. (7) Vitamin D deficiency Is this a current diagnosis for this admission?: Yes Plan: Ct with Vitamin D 2000iu qd po. (8) DVT prophylaxis Is this a current diagnosis for this admission?: Yes Plan: Ct with Warfarin and SCD. (9) Smoker Is this a current diagnosis for this admission?: Yes Plan: Ct with Nicotine patch 21 mg qd; smoking cessation counseling done. - Time Time Spent: 30 to 50 Minutes Smoking Cessation Education: 3 to 10 minutes Medications reviewed and adjusted accordingly: Yes Anticipated discharge: Home Within: within 36 hours
--- NOTE | 2018-05-13 19:38 | EKG REPORT ---
SEVERITY:- BORDERLINE ECG - SINUS RHYTHM PROBABLE LEFT ATRIAL ABNORMALITY BORDERLINE ST ELEVATION : Confirmed by: Vishnu Nichols MD 13-May-2018 19:37:26
[2018-05-13] MEDS ORDERED: WARFARIN SODIUM 5 MG TABLET PO SCH (22:00)
[2018-05-13] MEDS ORDERED: (PENDING PHARMACY ID) (Warfarin Sodium [Coumadin] 10 MG) PO SCH (22:00)
[2018-05-14 05:08] LABS: HEMATOCRIT 42.2 % (37.9-51.0); HEMOGLOBIN 14.4 g/dL (13.5-17.0); MEAN CORPUSCULAR HEMOGLOBIN 31.2 pg (27.0-33.4); MEAN CORPUSCULAR HGB CONC 34.1 g/dL (32.0-36.0); MEAN CORPUSCULAR VOLUME 91 fl (80-97); PLATELET COUNT 128 10^3/uL (150-450); RED BLOOD COUNT 4.61 10^6/uL (4.35-5.55); RED CELL DISTRIBUTION WIDTH 13.9 % (11.5-14.0); WHITE BLOOD COUNT 6.6 10^3/uL (4.0-10.5)
[2018-05-14 05:09] LABS: INTERNATIONAL RATION (INR) 1.86; PROTHROMBIN TIME 22.3 SEC (11.4-15.4)
[2018-05-14 05:31] LABS: ANION GAP 7 (5-19); BLOOD UREA NITROGEN 16 mg/dL (7-20); CALCIUM 8.8 mg/dL (8.4-10.2); CARBON DIOXIDE 24 mmol/L (22-30); CHLORIDE 112 mmol/L (98-107); CHOLESTEROL 141.56 mg/dL (0-200); GLUCOSE 95 mg/dL (75-110); SODIUM 142.6 mmol/L (137-145); TRIGLYCERIDES 135 mg/dL (<150)
[2018-05-14 05:42] LABS: DIRECT LDL 107 mg/dL (<100)
[2018-05-14] MEDS ORDERED: LANSOPRAZOLE 30 MG TAB.RAP.DR PO SCH (06:00)
--- NOTE | 2018-05-14 08:59 | Physician Advisory Note ---
Physician Advisor ProgressNote .: Pursuant to the plan for [facility], I have reviewed the medical record for this patient. Physician Advisor Statement: Please consider documenting, if you agree: 1. "Acute hypernatremia, suspect due to " [dehyd?] 2. "orthostatic hypotension" (found & tx'd in ED) Status: Medicare pt approp'ly brought in as Obs for suspected gastroenteritis w /hypernatremia, etc. Today, expectation will be likely ok for d/c. If this is not the case - pt still unable to tolerate adequate po intake, for example - then please document ongoing clinical issues/attg concerns, & may change to Inpatient status due to clinical need for 2nd MN. Thanks! CK
[2018-05-14] MEDS ORDERED: NICOTINE 21 MG/24 HR PATCH.TD24 TD SCH (10:00)
[2018-05-14] MEDS ORDERED: CHOLECALCIFEROL (D3) 1,000 UNIT TABLET PO SCH (10:00)
[2018-05-14] MEDS ORDERED: CHOLECALCIFEROL PO SCH (10:00)
--- NOTE | 2018-05-14 11:08 | PDOC DISCHARGE SUMMARY ---
General - Admit/Disc Date/PCP Admission Date/Primary Care Provider: 05/13/18 16:16 EDUARDO DHILLON Discharge Date: 05/14/18 - Discharge Diagnosis (1) Gastroenteritis Is this a current diagnosis for this admission?: Yes (2) Hypernatremia Is this a current diagnosis for this admission?: Yes (3) Atrial fibrillation Is this a current diagnosis for this admission?: Yes (4) Hypertension Is this a current diagnosis for this admission?: Yes (5) Hyperlipidemia Is this a current diagnosis for this admission?: Yes (6) Lumbago Is this a current diagnosis for this admission?: Yes (7) Vitamin D deficiency Is this a current diagnosis for this admission?: Yes (8) DVT prophylaxis Is this a current diagnosis for this admission?: Yes (9) Smoker Is this a current diagnosis for this admission?: Yes - Additional Information Resuscitation Status: Full Code Home Medications: Pravastatin Sodium [Pravachol] 40 mg PO QHS 11/01/11 Warfarin Sodium [Coumadin] 10 mg PO QHS 11/01/11 Cholecalciferol (Vitamin D3) [Vitamin D3] 2,000 unit PO DAILY 08/18/17 History of Present Illness History of Present Illness: NICO SHIPLEY is a 72 year old male with hx of HTN/Hyperlipidemia/A-fib/Back pain/Hip pain/Vitamin D def./ Ca prostate s.p surgery, who started having persistent diarrhea every 30 minutes since past 2 days; associated nausea, dizziness, weakness and anorexia. No response to Pepto Bismol, hence he came to ER for evaluation and mgt. Hospital Course Hospital Course: he was admitted to medical floor for acute gastroenteritis with dehydration and acute hypernatremia due to dehydration. He had 2 liters of normal saline at ER. He was put on 1/2 normal saline at 100 cc/hr and Zofran 4 mg q4h IV prn. His stool for C.difficile was negative. He no longer has diarrhea and no nausea or dizziness. He feels better and stable and back to his baseline.He will be discharged home today to followup with his PCP, Dr Dhillon within 1 week for transition of care. Physical Exam Vital Signs: Temp Pulse Resp BP Pulse Ox 97.9 F 76 16 149/81 H 100 05/14/18 07:26 05/14/18 07:26 05/14/18 07:26 05/14/18 07:26 05/14/18 07:26 Intake & Output 05/13/18 05/14/18 05/15/18 06:59 06:59 06:59 Intake Total 1228 Balance 1228 Weight 74.7 kg General appearance: PRESENT: no acute distress, cooperative, well-developed, well-nourished Head exam: PRESENT: atraumatic, normocephalic Eye exam: PRESENT: EOMI, PERRLA Ear exam: PRESENT: normal external ear exam, TM's normal bilaterally Mouth exam: PRESENT: moist, neck supple, tongue midline Respiratory exam: PRESENT: clear to auscultation victor m, symmetrical Cardiovascular exam: PRESENT: irregular rhythm, +S1, +S2 GI/Abdominal exam: PRESENT: normal bowel sounds, soft Rectal exam: PRESENT: deferred Extremities exam: PRESENT: full ROM Musculoskeletal exam: PRESENT: ambulatory Neurological exam: PRESENT: alert, awake, oriented to person, oriented to place , oriented to time Psychiatric exam: PRESENT: normal mood Results Laboratory Results: 05/14/18 04:54 05/14/18 04:54 05/14/18 05/14/18 04:54 04:54 WBC 6.6 RBC 4.61 Hgb 14.4 Hct 42.2 MCV 91 MCH 31.2 MCHC 34.1 RDW 13.9 Plt Count 128 L Sodium 142.6 Potassium 4.0 Chloride 112 H Carbon Dioxide 24 Anion Gap 7 BUN 16 Creatinine 0.82 Est GFR ( Amer) > 60 Est GFR (Non-Af Amer) > 60 Glucose 95 Calcium 8.8 Triglycerides 135 Cholesterol 141.56 LDL Cholesterol Direct 107 H VLDL Cholesterol 27.0 HDL Cholesterol 27 L Qualifiers - * PATIENT BEING DISCHARGED WITH ANY OF THE FOLLOWING DIAGNOSIS: No
[2018-05-14 11:21] VITALS: BP 110/65
[2018-05-14] MEDS ORDERED: ATORVASTATIN CALCIUM 10 MG TABLET PO SCH (22:00)
== END 2018-05-14 12:08 | disposition home or self-care (01) ==
LOC: ER 11:46 → EH 16:16 → 3S 18:31
PROVIDERS: ADMIT Internal Medicine; ATTEND Internal Medicine
PROC: HZ31ZZZ Individual Counseling for Substance Abuse Treatment, Behavioral (ICD-10-PCS; principal; 2018-05-13)
DX: K52.9 Noninfective gastroenteritis and colitis, unspecified (principal); E87.0 Hyperosmolality and hypernatremia; I48.0 Paroxysmal atrial fibrillation; I10 Essential (primary) hypertension; E78.2 Mixed hyperlipidemia; M54.5 Low back pain; E55.9 Vitamin D deficiency, unspecified; F17.200 Nicotine dependence, unspecified, uncomplicated; E86.0 Dehydration; I25.10 Atherosclerotic heart disease of native coronary artery without angina pectoris; R63.0 Anorexia; Z98.890 Other specified postprocedural states; Z79.01 Long term (current) use of anticoagulants
CPT/HCPCS: 93005; 99285; 96361; 96374; 36415 ×2; 87040; 87045; 89055; 87205; 85025; 85027; 85610 ×2; 82272; 87077; 80048; 80053; 81001; 84484; 87493; 80061; 93010; 99406; G0378 ×3; A9270 ×3; J3490; J7030; S0028

== ENCOUNTER 2019-09-02 08:46 | Observation (INO) | payer MEDICARE, OTHER ==
--- NOTE | 2019-09-02 09:37 | ER Document Report ---
ED Medical Screen (RME) - General Chief Complaint: Abscess Stated Complaint: CYST/DIZZY/NAUSEA Time Seen by Provider: 09/02/19 09:35 Primary Care Provider: EDUARDO DHILLON MD [Primary Care Provider] - Follow up as needed Mode of Arrival: Wheelchair Information source: Patient Notes: 74-year-old male presented to ED for dizziness nausea and vomiting cough and has been intermittently. Is alert oriented respirations regular nonlabored his temp is 98 7 at this moment. She is not had any fevers. He is denies any COPD pneumonia or anything else like that. We will get blood urine chest x-ray and have patient examined by physician. He also has abscess around his anal area. Dates this started about 3 weeks ago. I have greeted and performed a rapid initial assessment of this patient. A comprehensive ED assessment and evaluation of the patient, analysis of test results and completion of medical decision making process will be conducted by an additional ED providers. TRAVEL OUTSIDE OF THE [place] IN LAST 30 DAYS: No - Related Data Allergies/Adverse Reactions: Sulfa (Sulfonamide Antibiotics) Allergy (Verified 08/18/17 09:56) Home Medications: [place], Warfarin, Pravastatin Past Medical History - Past Medical History Cardiac Medical History: Reports: Hx Coronary Artery Disease, Hx Hypertension Pulmonary Medical History: Denies: Hx Tuberculosis Renal/ Medical History: Denies: Hx Peritoneal Dialysis Musculoskeltal Medical History: Reports Hx Arthritis Psychiatric Medical History: Denies: Hx Depression Past Surgical History: Reports: Hx Abdominal Surgery, Hx Bowel Surgery - 2009 for bowel obstruction. Denies: Hx Appendectomy, Hx Cholecystectomy, Hx Coronary Artery Bypass Graft, Hx Gastric Bypass Surgery, Hx Herniorrhaphy, Hx Pacemaker, Hx Tonsillectomy - Immunizations Hx Diphtheria, Pertussis, Tetanus Vaccination: No Physical Exam - Vital signs Vitals: Temp Pulse Resp BP Pulse Ox 98.7 F 94 16 143/91 H 100 09/02/19 09:01 09/02/19 09:01 09/02/19 09:01 09/02/19 09:01 09/02/19 09:01 Course - Vital Signs Vital signs: Temp Pulse Resp BP Pulse Ox 98.7 F 94 16 143/91 H 100 09/02/19 09:01 09/02/19 09:01 09/02/19 09:01 09/02/19 09:01 09/02/19 09:01 Doctor's Discharge - Discharge Referrals: EDUARDO DHILLON MD [Primary Care Provider] - Follow up as needed
[2019-09-02 10:05] LABS: ABSOLUTE BASOPHILS # (AUTO) 0.1 10^3/uL (0.0-0.2); ABSOLUTE LYMPHOCYTES (AUTO) 1.6 10^3/uL (0.5-4.7); ABSOLUTE MONOCYTES (AUTO) 1.7 10^3/uL (0.1-1.4); ABSOLUTE NEUT (AUTO) 12.8 10^3/uL (1.7-8.2); BASOPHILS % (AUTO) 0.5 % (0-2); EOSINOPHILS % (AUTO) 0.1 % (0-6); HEMATOCRIT 51.3 % (37.9-51.0); HEMOGLOBIN 17.1 g/dL (13.5-17.0); LYMPHOCYTES % (AUTO) 9.8 % (13-45); MEAN CORPUSCULAR HEMOGLOBIN 30.8 pg (27.0-33.4); MEAN CORPUSCULAR HGB CONC 33.3 g/dL (32.0-36.0); MEAN CORPUSCULAR VOLUME 92 fl (80-97); MONOCYTES % (AUTO) 10.3 % (3-13); PLATELET COUNT 168 10^3/uL (150-450); RED BLOOD COUNT 5.56 10^6/uL (4.35-5.55); RED CELL DISTRIBUTION WIDTH 13.9 % (11.5-14.0); SEGMENTED NEUTROPHILS % (AUTO) 79.3 % (42-78); TOTAL CELLS COUNTED % (AUTO) 100 %; WHITE BLOOD COUNT 16.1 10^3/uL (4.0-10.5)
[2019-09-02 10:08] LABS: APPEARANCE,URINE SLIGHTLY-CLOUDY; BILIRUBIN,URINE NEGATIVE (NEGATIVE); COLOR,URINE AMBER; GLUCOSE, URINE NEGATIVE (NEGATIVE); KETONES,URINE TRACE mg/dL (NEGATIVE); PROTEIN,URINE 100 mg/dL (NEGATIVE); URINE SPECIFIC GRAVITY 1.028
--- NOTE | 2019-09-02 10:19 | RADIOLOGY REPORT (SQ) ---
EXAM DESCRIPTION: CHEST 2 VIEWS COMPLETED DATE/TIME: 09/02/2019 8:56 am REASON FOR STUDY: Cough and congestion COMPARISON: 12/11/2014 EXAM PARAMETERS: NUMBER OF VIEWS: two views TECHNIQUE: Digital Frontal and Lateral radiographic views of the chest acquired. RADIATION DOSE: NA LIMITATIONS: none FINDINGS: LUNGS AND PLEURA: No opacities, masses or pneumothorax. No pleural effusion. Bilateral ni pple shadows are noted over of the liver chest. MEDIASTINUM AND HILAR STRUCTURES: No masses or contour abnormalities. HEART AND VASCULAR STRUCTURES: Heart normal size. No evidence for failure. BONES: No acute findings. HARDWARE: None in the chest. OTHER: No other significant finding. IMPRESSION: NO ACUTE RADIOGRAPHIC FINDING IN THE CHEST. TECHNICAL DOCUMENTATION: JOB ID: [id number] 2010 [employer]- All Rights Reserved Reading location - IP/workstation name: [email or web address]
[2019-09-02 10:26] LABS: ALKALINE PHOSPHATASE 59 U/L (38-126); ANION GAP 7 (5-19); ASPARTATE AMINO TRANSFERASE 30 U/L (17-59); BLOOD UREA NITROGEN 14 mg/dL (7-20); CARBON DIOXIDE 31 mmol/L (22-30); CHLORIDE 101 mmol/L (98-107); GLUCOSE 116 mg/dL (75-110); POTASSIUM 4.5 mmol/L (3.6-5.0); TOTAL PROTEIN 7.2 g/dL (6.3-8.2)
[2019-09-02 10:33] LABS: INTERNATIONAL RATION (INR) 1.55; PROTHROMBIN TIME 18.7 SEC (11.4-15.4)
[2019-09-02] MEDS ORDERED: PIPERACILLIN/TAZOBACTAM 3.375 GM VIAL IV ONE (11:03)
[2019-09-02] MEDS ORDERED: NORMAL SALINE 1000 ML 1,000 ML IV ONE (11:15)
--- NOTE | 2019-09-02 12:26 | PDOC H&P ---
History of Present Illness Admission Date/PCP: EDUADRO DHILLON Patient complains of: Pains along the left perianal area History of Present Illness: NICO SHIPLEY is a 74 year old male he started noticing small cyst along his left perianal area about 3 weeks ago and this is been getting more painful and more prominent to the point where he has some more discomfort when he sits down. However in the past 2days complain of some dizziness. He takes Coumadin to make his blood thinner per his primary physician's order. Denies any fever no chills. Past Medical History Cardiac Medical History: Reports: Atrial Fibrillation, Coronary Artery Disease, Hyperlipidema, Hypertension Pulmonary Medical History: Denies: Tuberculosis Musculoskeltal Medical History: Reports: Arthritis Psychiatric Medical History: Denies: Depression Past Surgical History Past Surgical History: Reports: Other - Prostate surgery and abdominal surgery for bowel obstruction Denies: Appendectomy, Cholecystectomy, Coronary Artery Bypass Graft, Gastric Bypass Surgery, Herniorrhaphy, Pacemaker, Tonsillectomy Social History Smoking Status: Current Every Day Smoker Frequency of Alcohol Use: None Hx Recreational Drug Use: No Drugs: None Hx Prescription Drug Abuse: No Family History Family History: Reviewed & Not Pertinent Parental Family History Reviewed: Yes Children Family History Reviewed: No Sibling(s) Family History Reviewed.: No Medication/Allergy Home Medications: Pravastatin Sodium [Pravachol] 40 mg PO QHS 11/01/11 Warfarin Sodium [Coumadin] 10 mg PO QHS 11/01/11 Cholecalciferol (Vitamin D3) [Vitamin D3] 2,000 unit PO DAILY 08/18/17 Allergies/Adverse Reactions: Sulfa (Sulfonamide Antibiotics) Allergy (Verified 08/18/17 09:56) Review of Systems Constitutional: PRESENT: as per HPI Neurological: PRESENT: dizziness Physical Exam Vital Signs: Temp Pulse Resp BP Pulse Ox 98.7 F 94 16 143/91 H 100 09/02/19 09:01 09/02/19 09:01 09/02/19 09:01 09/02/19 09:01 09/02/19 09:01 Intake & Output 09/01/19 09/02/19 09/03/19 06:59 06:59 06:59 Weight 74.1 kg General appearance: PRESENT: mild distress Eye exam: PRESENT: conjunctiva pink Mouth exam: PRESENT: moist Neck exam: PRESENT: full ROM Respiratory exam: PRESENT: clear to auscultation victor m Cardiovascular exam: PRESENT: tachycardia Pulses: PRESENT: normal radial pulses Vascular exam: PRESENT: normal capillary refill GI/Abdominal exam: PRESENT: soft - Nontender Rectal exam: PRESENT: tenderness - With some prominence on the left perianal area. Extremities exam: PRESENT: full ROM Musculoskeletal exam: PRESENT: full ROM Psychiatric exam: PRESENT: appropriate affect Skin exam: PRESENT: normal color, warm Results Laboratory Results: 09/02/19 09:45 09/02/19 09:45 09/02/19 09/02/19 09/02/19 09:45 09:45 09:45 WBC 16.1 H RBC 5.56 H Hgb 17.1 H Hct 51.3 H MCV 92 MCH 30.8 MCHC 33.3 RDW 13.9 Plt Count 168 Seg Neutrophils % 79.3 H Sodium 138.7 Potassium 4.5 Chloride 101 Carbon Dioxide 31 H Anion Gap 7 BUN 14 Creatinine 0.81 Est GFR ( Amer) > 60 Glucose 116 H Lactic Acid Calcium 10.0 Total Bilirubin 1.0 AST 30 Alkaline Phosphatase 59 Total Protein 7.2 Albumin 4.0 Urine Color KIERSTEN Urine Appearance SLIGHTLY-CLOUDY Urine pH 5.0 Ur Specific [place] 1.028 Urine Protein 100 H Urine Glucose (UA) NEGATIVE Urine Ketones TRACE H Urine Blood SMALL H Urine RBC (Auto) 2 09/02/19 11:07 WBC RBC Hgb Hct MCV MCH MCHC RDW Plt Count Seg Neutrophils % Sodium Potassium Chloride Carbon Dioxide Anion Gap BUN Creatinine Est GFR ( Amer) Glucose Lactic Acid 1.4 Calcium Total Bilirubin AST Alkaline Phosphatase Total Protein Albumin Urine Color Urine Appearance Urine pH Ur Specific [place] Urine Protein Urine Glucose (UA) Urine Ketones Urine Blood Urine RBC (Auto) Impressions: Chest X-Ray 09/02/19 09:38 IMPRESSION: NO ACUTE RADIOGRAPHIC FINDING IN THE CHEST. Assessment & Plan - Time Time Spent: 30 to 50 Minutes - Inpatient Certification Medical Necessity: Need For IV Fluids, Need for Pain Control, Need for IV Antibiotics, Need for Surgery - Plan Summary Plan Summary: 74-year-old male with history of Coumadin intake to make his blood thin for primary medical doctors orders, noted gradually enlarging and painful lump on the left perianal area and going towards the scrotal side. 2 days ago she noted a noted some dizziness. There is tender swelling on the left perianal area compatible with abscess formation. He denies any fever no chills. Plans: Start IV antibiotics 2 OR for I&D of left perianal abscess We will consult medicine for dizziness
[2019-09-02] MEDS ORDERED: PIPERACILLIN/TAZOBACTAM 3.375 GM VIAL IV SCH (12:45)
[2019-09-02] MEDS: DEXTROSE 5%-LACTATED RINGERS 1,000 ML IV PRN (13:07)
--- NOTE | 2019-09-02 14:33 | EKG REPORT ---
SEVERITY:- ABNORMAL ECG - SINUS RHYTHM LEFT ATRIAL ABNORMALITY ST ELEVATION, ANTERIOR LEADS .NO SIGNIFICANT CHANGE FROM PRIOR EKG'S : Confirmed by: Cailin Leal MD 02-Sep-2019 14:32:13
--- NOTE | 2019-09-02 16:01 | ER Document Report ---
Entered by SAMMY WALLIS SCRIBE 09/02/19 1027 Acting as scribe for:DENISSE GUSMAN MD ED General - General Chief Complaint: Abscess Stated Complaint: CYST/DIZZY/NAUSEA Time Seen by Provider: 09/02/19 09:35 Mode of Arrival: Wheelchair Information source: Patient Notes: This 74-year-old male patient presents to the emergency department today with complaints of pain around his the rectum for the last several days. Patient reports that his pain becomes much more severe if he sits down on his buttocks. Patient also mentions that he has had "dizziness or lightheadedness" for the last 2 days. Patient states he has been unable to associate this dizziness with any certain activity. Patient denies any change in his dizziness with position or head movement. TRAVEL OUTSIDE OF THE [place] IN LAST 30 DAYS: No - Related Data Allergies/Adverse Reactions: Sulfa (Sulfonamide Antibiotics) Allergy (Verified 08/18/17 09:56) Home Medications: [place], Warfarin, Pravastatin Past Medical History - General Information source: Patient - Social History Smoking Status: Current Every Day Smoker Cigarette use (# per day): Yes Lives with: Family Family History: Reviewed & Not Pertinent Patient has suicidal ideation: No Patient has homicidal ideation: No - Past Medical History Cardiac Medical History: Reports: Hx Atrial Fibrillation, Hx Coronary Artery Disease, Hx Hypercholesterolemia, Hx Hypertension Musculoskeletal Medical History: Reports Hx Arthritis Past Surgical History: Reports: Hx Abdominal Surgery, Hx Bowel Surgery - 2010 for bowel obstruction, Hx Genitourinary Surgery - prostate removed - Immunizations Hx Diphtheria, Pertussis, Tetanus Vaccination: No Review of Systems - Review of Systems Constitutional: No symptoms reported EENT: No symptoms reported Cardiovascular: See HPI, Dizziness, Lightheaded Respiratory: No symptoms reported Gastrointestinal: No symptoms reported Genitourinary: No symptoms reported Male Genitourinary: No symptoms reported Musculoskeletal: No symptoms reported Skin: See HPI, Lumps Hematologic/Lymphatic: No symptoms reported Neurological/Psychological: No symptoms reported -: Yes All other systems reviewed and negative Physical Exam - Vital signs Vitals: Temp Pulse Resp BP Pulse Ox 98.7 F 94 16 143/91 H 100 09/02/19 09:01 09/02/19 09:01 09/02/19 09:01 09/02/19 09:01 09/02/19 09:01 - General General appearance: Appears well, Alert In distress: None - HEENT Head: Normocephalic, Atraumatic Eyes: Normal Pupils: PERRL - Respiratory Respiratory status: No respiratory distress Breath sounds: Normal, Nonproductive cough - Cardiovascular Rhythm: Regular Heart sounds: Normal auscultation Murmur: No - Abdominal Inspection: Normal Bowel sounds: Normal Tenderness: Nontender - Rectal Notes: There is a tender abscess with surrounding induration in the left perineal region starting at the edge of the scrotum extending to the anus. - Back Back: Normal - Extremities General upper extremity: Normal inspection General lower extremity: Normal inspection - Neurological Neuro grossly intact: Yes Notes: There is no nystagmus noted when I have the patient sit up and look about rapidly. He also denies onset of dizziness when he does this. - Psychological Associated symptoms: Normal affect, Normal mood - Skin Skin Temperature: Warm Skin Moisture: Dry Skin Color: Normal Course - Vital Signs Vital signs: Temp Pulse Resp BP Pulse Ox 98.6 F 85 18 143/80 H 97 09/02/19 13:03 09/02/19 13:03 09/02/19 13:03 09/02/19 13:03 09/02/19 13:03 - Laboratory Result Diagrams: 09/02/19 09:45 09/02/19 09:45 Laboratory results interpreted by me: 09/02/19 09/02/19 09/02/19 09:45 09:45 09:45 WBC 16.1 H RBC 5.56 H Hgb 17.1 H Hct 51.3 H Lymph % (Auto) 9.8 L Absolute Neuts (auto) 12.8 H Absolute Monos (auto) 1.7 H Seg Neutrophils % 79.3 H PT Carbon Dioxide 31 H Glucose 116 H Urine Protein 100 H Urine Ketones TRACE H Urine Blood SMALL H Urine Urobilinogen 2.0 H Leukocyte Esterase Rfl SMALL H 09/02/19 09:45 WBC RBC Hgb Hct Lymph % (Auto) Absolute Neuts (auto) Absolute Monos (auto) Seg Neutrophils % PT 18.7 H Carbon Dioxide Glucose Urine Protein Urine Ketones Urine Blood Urine Urobilinogen Leukocyte Esterase Rfl - EKG Interpretation by Me EKG shows normal: Sinus rhythm, [place], Intervals, QRS Complexes. abnormal: ST-T Waves - Anterior ST elevation Rate: Normal - 82 Rhythm: NSR P Waves: LAE When compared to previous EKG there are: No significant change - Consults Dr. Rebollar Time consulted: 11:00 Consulted provider: will come to ER Discharge - Discharge Clinical Impression: Abscess of superficial perineal space Leukocytosis Qualifiers: Leukocytosis type: unspecified Qualified Code(s): D72.829 - Elevated white blood cell count, unspecified Condition: Stable Disposition: ADMITTED INPATIENT Admitting Provider: Surgicalist Unit Admitted: Surgical Floor I personally performed the services described in the documentation, reviewed and edited the documentation which was dictated to the scribe in my presence, and it accurately records my words and actions.
--- NOTE | 2019-09-02 16:45 | PDOC CONSULTATION ---
Consultation Consult Date: 09/02/19 Attending physician:: ANITA ESCUDERO Provider Consulted: GIOVANNY PULLIAM Consult reason:: dizziness History of Present Illness Admission Date/PCP: 09/02/19 12:49 EDUARDO DHILLON Patient complains of: Dizziness History of Present Illness: NICO SHIPLEY is a 74 year old male with a history of atrial fibrillation, arthritis, hyperlipidemia, prostate cancer status post prostatectomy over 10 years ago, who presents to the hospital for evaluation of rectal abscess. Patient is being planned for the OR and hospitalist service consulted for evaluation of patient's dizziness. Patient states he has been experiencing dizziness which he describes as disequilibrium which he has noted for the past 2 days. During this time, it has been occurring very frequently throughout the day and no cause while he is laying down as well as while standing. No particular exacerbation with standing up. Denies any vertigo. Denies any earache, pain or fullness. Denies tinnitus. Patient states that an overwhelming dizziness has been off and we came up from sleep during which she feels off balance while laying down And lightheaded. Maintains no vertigo. Denies similar prior episodes. Denies any weakness in his extremities. Sometimes associated with visual changes but no headache. Denies any recent changes in medications. Denies association with palpitations. Past Medical History Cardiac Medical History: Reports: Atrial Fibrillation, Hyperlipidema, Hypertension Pulmonary Medical History: Denies: Tuberculosis Musculoskeltal Medical History: Reports: Arthritis Psychiatric Medical History: Denies: Depression Past Surgical History Past Surgical History: Reports: Other - Prostate surgery and abdominal surgery for bowel obstruction Denies: Appendectomy, Cholecystectomy, Coronary Artery Bypass Graft, Gastric Bypass Surgery, Herniorrhaphy, Pacemaker, Tonsillectomy Social History Lives with: Family Smoking Status: Current Every Day Smoker Frequency of Alcohol Use: None Hx Recreational Drug Use: No Drugs: None Hx Prescription Drug Abuse: No Family History Family History: Hypertension Parental Family History Reviewed: Yes Children Family History Reviewed: NA Sibling(s) Family History Reviewed.: NA Medication/Allergy Home Medications: Pravastatin Sodium [Pravachol] 40 mg PO QHS 11/01/11 Warfarin Sodium [Coumadin] 10 mg PO QHS 11/01/11 Cholecalciferol (Vitamin D3) [Vitamin D3] 2,000 unit PO DAILY 08/18/17 Allergies/Adverse Reactions: Sulfa (Sulfonamide Antibiotics) Allergy (Verified 08/18/17 09:56) Review of Systems Constitutional: ABSENT: fatigue, fever(s) Eyes: PRESENT: visual disturbances Ears: ABSENT: hearing changes Nose, Mouth, and Throat: ABSENT: headache(s), sore throat, vertigo Cardiovascular: ABSENT: chest pain Respiratory: ABSENT: dyspnea Gastrointestinal: ABSENT: abdominal pain, nausea, vomiting Genitourinary: ABSENT: dysuria Musculoskeletal: ABSENT: muscle weakness Integumentary: ABSENT: diaphoresis Neurological: ABSENT: confusion, focal weakness, syncope, vertigo Psychiatric: ABSENT: anxiety Endocrine: PRESENT: polyuria Physical Exam Vital Signs: Temp Pulse Resp BP Pulse Ox 98.6 F 85 18 143/80 H 97 09/02/19 13:03 09/02/19 13:03 09/02/19 13:03 09/02/19 13:03 09/02/19 13:03 Intake & Output 09/01/19 09/02/19 09/03/19 06:59 06:59 06:59 Intake Total 1000 Output Total 200 Balance 800 Weight 74.1 kg General appearance: PRESENT: no acute distress, cooperative. ABSENT: hard of hearing Head exam: PRESENT: atraumatic, normocephalic Eye exam: PRESENT: EOMI, nystagmus - Mild nystagmus on left gaze, PERRLA. ABSENT: scleral icterus Mouth exam: PRESENT: neck supple Neck exam: ABSENT: JVD Respiratory exam: PRESENT: clear to auscultation victor m, unlabored. ABSENT: tachypnea, wheezes Cardiovascular exam: PRESENT: RRR, +S1, +S2. ABSENT: systolic murmur, tachycardia GI/Abdominal exam: PRESENT: soft. ABSENT: rebound, rigid, tenderness Extremities exam: ABSENT: pedal edema, +1 edema, +2 edema Neurological exam: PRESENT: alert, awake, oriented to person, oriented to place, oriented to time, oriented to situation, CN II-XII grossly intact, normal gait. ABSENT: abnormal gait, ataxia, motor sensory deficit, aphasic Psychiatric exam: ABSENT: agitated, anxious Focused psych exam: ABSENT: pressured speech Results Laboratory Results: 09/02/19 09:45 09/02/19 09:45 09/02/19 09/02/19 09/02/19 09:45 09:45 09:45 WBC 16.1 H RBC 5.56 H Hgb 17.1 H Hct 51.3 H MCV 92 MCH 30.8 MCHC 33.3 RDW 13.9 Plt Count 168 Seg Neutrophils % 79.3 H Sodium 138.7 Potassium 4.5 Chloride 101 Carbon Dioxide 31 H Anion Gap 7 BUN 14 Creatinine 0.81 Est GFR ( Amer) > 60 Glucose 116 H Lactic Acid Calcium 10.0 Total Bilirubin 1.0 AST 30 Alkaline Phosphatase 59 Total Protein 7.2 Albumin 4.0 Urine Color KIERSTEN Urine Appearance SLIGHTLY-CLOUDY Urine pH 5.0 Ur Specific [place] 1.028 Urine Protein 100 H Urine Glucose (UA) NEGATIVE Urine Ketones TRACE H Urine Blood SMALL H Urine RBC (Auto) 2 09/02/19 11:07 WBC RBC Hgb Hct MCV MCH MCHC RDW Plt Count Seg Neutrophils % Sodium Potassium Chloride Carbon Dioxide Anion Gap BUN Creatinine Est GFR ( Amer) Glucose Lactic Acid 1.4 Calcium Total Bilirubin AST Alkaline Phosphatase Total Protein Albumin Urine Color Urine Appearance Urine pH Ur Specific [place] Urine Protein Urine Glucose (UA) Urine Ketones Urine Blood Urine RBC (Auto) Impressions: Chest X-Ray 09/02/19 09:38 IMPRESSION: NO ACUTE RADIOGRAPHIC FINDING IN THE CHEST. Assessment and Plan - Diagnosis (1) Dizziness Is this a current diagnosis for this admission?: Yes Plan: Upon reviewing patient's chart, I see that patient has had dizziness investigated before with a CT of the head done on 2018 with an indication listed as 'dizziness on Coumadin' which was normal at the time. It seems that patient has experienced pretty significant transient dizziness over the past 2 days which is unlike prior episodes. I have checked orthostatic vital signs which are negative. Dizziness is described more as lightheadedness with disequilibrium even when supine with mild transient nystagmus on left gaze on exam. In absence of other etiology for his dizziness, I recommend MRI of the brain. However his dizziness is likely not an overtly new event. (2) Abnormal EKG Is this a current diagnosis for this admission?: Yes Plan: EKG showing some ST elevation in anterior leads. However compared to prior EKG, there appeared to be some subtle similar findings on his prior EKG from another visit. Patient denies any chest pain or shortness of breath at this time. Will check on troponin level. ACS at this time is unlikely. (3) Current use of mcfp anticoagulation Is this a current diagnosis for this admission?: Yes Plan: States he is on anticoagulation to thin his blood but cannot specify why. Prior notes from Dr. Dhillon who is his PCP indicates he has a history of A. fib. Would recommend continue patient's warfarin after his surgery. - Time Time Spent with patient: 35 or more minutes
[2019-09-02] MEDS: PIPERACILLIN SODIUM/TAZOBACTAM 3.375 GM in NORMAL SALINE 100 ML IV SCH (17:54)
[2019-09-03] MEDS: PIPERACILLIN SODIUM/TAZOBACTAM 3.375 GM in NORMAL SALINE 100 ML IV SCH ×4 (00:27→17:00)
[2019-09-03] MEDS: DEXTROSE 5%-LACTATED RINGERS 1,000 ML IV PRN ×2 (00:28→15:59)
[2019-09-03] MEDS ORDERED: DEXTROSE 40% GEL 15 GM TUBE PO PRN ×2 (02:35)
[2019-09-03] MEDS ORDERED: DEXTROSE 50%-WATER 25 GM/50 ML DISP.SYRIN IV PRN ×2 (02:35)
[2019-09-03] MEDS ORDERED: GLUCAGON,HUMAN RECOMB 1 MG INJ SUBCUT PRN (02:35)
[2019-09-03 05:24] LABS: ABSOLUTE LYMPHOCYTES (AUTO) 1.4 10^3/uL (0.5-4.7); ABSOLUTE MONOCYTES (AUTO) 1.3 10^3/uL (0.1-1.4); BASOPHILS % (AUTO) 0.3 % (0-2); EOSINOPHILS % (AUTO) 0.1 % (0-6); HEMATOCRIT 43.1 % (37.9-51.0); LYMPHOCYTES % (AUTO) 10.7 % (13-45); MEAN CORPUSCULAR HEMOGLOBIN 31.1 pg (27.0-33.4); MEAN CORPUSCULAR HGB CONC 34.2 g/dL (32.0-36.0); MEAN CORPUSCULAR VOLUME 91 fl (80-97); MONOCYTES % (AUTO) 10.3 % (3-13); PLATELET COUNT 161 10^3/uL (150-450); RED BLOOD COUNT 4.73 10^6/uL (4.35-5.55); RED CELL DISTRIBUTION WIDTH 13.7 % (11.5-14.0); SEGMENTED NEUTROPHILS % (AUTO) 78.6 % (42-78); TOTAL CELLS COUNTED % (AUTO) 100 %; WHITE BLOOD COUNT 12.7 10^3/uL (4.0-10.5)
[2019-09-03 05:33] LABS: PROTHROMBIN TIME 21.1 SEC (11.4-15.4)
[2019-09-03 05:35] LABS: HEMOGLOBIN 14.7 g/dL (13.5-17.0)
[2019-09-03] MEDS ORDERED: LIDOCAINE 1% INJ-PF (10 MG/ML) 30 ML SDV ONE (07:38)
--- NOTE | 2019-09-03 07:57 | PDOC PROGRESS REPORT ---
Subjective Progress Note for:: 09/03/19 Subjective:: 74-year-old male admitted with perineal abscess. He reports pain in the perineum. He has had previous drainage of the area. There is no drainage at this time. He denies chest pain, shortness of breath, fevers, chills, melena, hematochezia, dizziness, orthostasis. Reason For Visit: ABSCESS LEFT PERIANAL,DIZZY Physical Exam Vital Signs: Temp Pulse Resp BP Pulse Ox 99.2 F 95 17 121/67 94 09/03/19 06:00 09/03/19 04:00 09/03/19 04:00 09/03/19 04:00 09/03/19 04:00 Intake & Output 09/02/19 09/03/19 09/04/19 06:59 06:59 06:59 Intake Total 2300 Output Total 200 Balance 2100 Weight 85.8 kg General appearance: PRESENT: no acute distress, cooperative Head exam: PRESENT: atraumatic, normocephalic Eye exam: PRESENT: EOMI, PERRLA. ABSENT: scleral icterus Mouth exam: PRESENT: moist, neck supple Neck exam: ABSENT: meningismus, tenderness, thyromegaly, tracheal deviation Respiratory exam: PRESENT: unlabored Cardiovascular exam: ABSENT: tachycardia GI/Abdominal exam: PRESENT: soft. ABSENT: distended, tenderness Rectal exam: PRESENT: other - Fluctuance in the perineum, consistent with abscess. No drainage. Minimal induration. Extremities exam: ABSENT: clubbing Neurological exam: PRESENT: alert, awake Psychiatric exam: ABSENT: agitated, anxious Focused psych exam: ABSENT: delusional Skin exam: ABSENT: cyanosis, erythema, jaundice Results Laboratory Results: 09/03/19 04:09 09/02/19 09:45 09/02/19 09/02/19 09/02/19 09:45 09:45 09:45 WBC 16.1 H RBC 5.56 H Hgb 17.1 H Hct 51.3 H MCV 92 MCH 30.8 MCHC 33.3 RDW 13.9 Plt Count 168 Seg Neutrophils % 79.3 H Sodium 138.7 Potassium 4.5 Chloride 101 Carbon Dioxide 31 H Anion Gap 7 BUN 14 Creatinine 0.81 Est GFR ( Amer) > 60 Glucose 116 H Lactic Acid Calcium 10.0 Total Bilirubin 1.0 AST 30 Alkaline Phosphatase 59 Total Protein 7.2 Albumin 4.0 Urine Color KIERSTEN Urine Appearance SLIGHTLY-CLOUDY Urine pH 5.0 Ur Specific [place] 1.028 Urine Protein 100 H Urine Glucose (UA) NEGATIVE Urine Ketones TRACE H Urine Blood SMALL H Urine RBC (Auto) 2 09/02/19 09/03/19 11:07 04:09 WBC 12.7 H RBC 4.73 Hgb 14.7 D Hct 43.1 MCV 91 MCH 31.1 MCHC 34.2 RDW 13.7 Plt Count 161 Seg Neutrophils % 78.6 H Sodium Potassium Chloride Carbon Dioxide Anion Gap BUN Creatinine Est GFR ( Amer) Glucose Lactic Acid 1.4 Calcium Total Bilirubin AST Alkaline Phosphatase Total Protein Albumin Urine Color Urine Appearance Urine pH Ur Specific [place] Urine Protein Urine Glucose (UA) Urine Ketones Urine Blood Urine RBC (Auto) 09/02/19 17:23 Troponin I < 0.012 Impressions: Chest X-Ray 09/02/19 09:38 IMPRESSION: NO ACUTE RADIOGRAPHIC FINDING IN THE CHEST. Assessment & Plan - Diagnosis (1) Abscess of superficial perineal space Is this a current diagnosis for this admission?: Yes - Plan Summary Plan Summary: This is a 74-year-old male with a perineal abscess. The patient is awaiting a brain MRI for "dizziness work-up". I have recommended the patient undergo inc ision and drainage at the bedside, as his abscess is roughly 2 cm in diameter. The patient has agreed to this. Risks/benefits discussed, informed consent obtained, and all questions answered.
[2019-09-03] MEDS ORDERED: LIDOCAINE 1% INJ-PF (10 MG/ML) 30 ML SDV INJ ONE (08:00)
--- NOTE | 2019-09-03 12:37 | PDOC PROGRESS REPORT ---
Subjective Progress Note for:: 09/03/19 Subjective:: Patient is anxious about the bedside procedure. His urine culture in fact is positive for gram-negative bacilli. His blood pressure has also been running high. Reason For Visit: ABSCESS LEFT PERIANAL,DIZZY Physical Exam Vital Signs: Temp Pulse Resp BP Pulse Ox 100.7 F H 91 16 156/88 H 97 09/03/19 07:58 09/03/19 07:58 09/03/19 07:58 09/03/19 07:58 09/03/19 07:58 Intake & Output 09/02/19 09/03/19 09/04/19 06:59 06:59 06:59 Intake Total 2300 Output Total 200 Balance 2100 Weight 85.8 kg General appearance: PRESENT: no acute distress, cooperative, well-developed Head exam: PRESENT: atraumatic, normocephalic Eye exam: PRESENT: conjunctiva pink. ABSENT: scleral icterus Ear exam: PRESENT: normal external ear exam. ABSENT: bleeding, drainage Neck exam: PRESENT: full ROM. ABSENT: carotid bruit, JVD, lymphadenopathy Respiratory exam: PRESENT: clear to auscultation victor m, symmetrical, unlabored. ABSENT: accessory muscle use, rales, rhonchi, tachypnea, wheezes Cardiovascular exam: PRESENT: RRR, +S1, +S2, systolic murmur, other - S3 GI/Abdominal exam: PRESENT: normal bowel sounds, soft. ABSENT: distended, guarding, tenderness Rectal exam: PRESENT: deferred Gentrourinary exam: ABSENT: indwelling catheter Extremities exam: ABSENT: pedal edema Musculoskeletal exam: PRESENT: ambulatory, normal inspection. ABSENT: deformity Neurological exam: PRESENT: alert, awake, oriented to person, oriented to place, oriented to time, oriented to situation, CN II-XII grossly intact. ABSENT: altered, motor sensory deficit Psychiatric exam: PRESENT: anxious, flat affect. ABSENT: agitated Focused psych exam: ABSENT: delusional, restlessness Skin exam: PRESENT: dry, normal color, warm. ABSENT: rash Results Laboratory Results: 09/03/19 04:09 09/02/19 09:45 09/03/19 04:09 WBC 12.7 H RBC 4.73 Hgb 14.7 D Hct 43.1 MCV 91 MCH 31.1 MCHC 34.2 RDW 13.7 Plt Count 161 Seg Neutrophils % 78.6 H 03/17/20 17:23 Troponin I < 0.012 Impressions: Chest X-Ray 09/02/19 09:38 IMPRESSION: NO ACUTE RADIOGRAPHIC FINDING IN THE CHEST. Assessment and Plan - Diagnosis (1) Abscess of superficial perineal space Is this a current diagnosis for this admission?: Yes Plan: 09/03/2019 For bedside incision and drainage later today by Dr. Whitehead. (2) Urinary tract infection Qualifiers: Urinary tract infection type: acute cystitis Hematuria presence: without hematuria Qualified Code(s): N30.00 - Acute cystitis without hematuria Is this a current diagnosis for this admission?: Yes Plan: 09/03/2019-the patient preliminary urine culture shows greater than 100,000 gram- negative bacilli. Await final identification and sensitivities to determine outpatient antibiotic therapy. (3) Abnormal EKG Is this a current diagnosis for this admission?: Yes Plan: EKG showing some ST elevation in anterior leads. However compared to prior EKG, there appeared to be some subtle similar findings on his prior EKG from another visit. Patient denies any chest pain or shortness of breath at this time. Will check on troponin level. ACS at this time is unlikely. 09/03/2019 EKG may be abnormal but is unchanged from previous. (4) Current use of assistant terminal manager anticoagulation Is this a current diagnosis for this admission?: Yes Plan: States he is on anticoagulation to thin his blood but cannot specify why. Prior notes from Dr. Leija who is his PCP indicates he has a history of A. fib. Would recommend continue patient's warfarin after his surgery. 09/03/2019-resume warfarin postop (5) Dizziness Is this a current diagnosis for this admission?: Yes Plan: Upon reviewing patient's chart, I see that patient has had dizziness investigated before with a CT of the head done on 2018 with an indication listed as 'dizziness on Coumadin' which was normal at the time. It seems that patient has experienced pretty significant transient dizziness over the past 2 days which is unlike prior episodes. I have checked orthostatic vital signs which ar e negative. Dizziness is described more as lightheadedness with disequilibrium even when supine with mild transient nystagmus on left gaze on exam. In absence of other etiology for his dizziness, I recommend MRI of the brain. However his dizziness is likely not an overtly new event. 09/03/2019 The MRI machine is currently down. Once it is up and running we will obtain the MRI of the head. It sounds like this dizziness is a chronic issue and the abscess and urinary tract infection have exacerbated it. - Plan Summary Summary: I&D was done on the left perineal abscess at bedside by Dr. Whitehead on 09/02/2018. His urine was tested positive for E. coli and sensitive to cefazolin and will be given a prescription for ends Keflex 500 mg p.o. 4 times daily x10 days. - Time Time Spent with patient: 15-24 minutes Medications reviewed and adjusted accordingly: Yes Anticipated discharge: Home Within: within 48 hours
--- NOTE | 2019-09-03 20:21 | RADIOLOGY REPORT (SQ) ---
EXAM DESCRIPTION: MRI of the brain without gadolinium CLINICAL HISTORY: 74 years Male; Dizziness, blurred vision TECHNIQUE: Routine noncontrast MRI brain protocol COMPARISON: Unenhanced CT scan of the brain March 14, 2013 FINDINGS: Diffusion: No diffusion restriction. Brain: Ruiz matter, white matter, ventricles, and cisterns are normal. No midline shift or mass-effect. No hemosiderin deposition. No abnormal extra-axial fluid collections. Mild asymmetric normal variant of the lateral ventricles is noted. This is similar to the previous head CT. Skull: Calvarial marrow is normal. Orbits and paranasal sinuses: Paranasal sinuses and mastoid air cells are clear. Visualized portions of the orbits are normal. No intra or extraconal abnormality is seen. The globes are intact. Optic nerve pathways are grossly normal. Vessels: Normal flow-voids are seen in the major intracranial arteries. IMPRESSION: Unremarkable MRI of the brain.
[2019-09-03] MEDS ORDERED: (PENDING PHARMACY ID) (Pravastatin Sodium [Pravachol] 40 MG) PO SCH (21:00)
[2019-09-03] MEDS ORDERED: ATORVASTATIN CALCIUM 10 MG TABLET PO SCH (22:00)
[2019-09-03] MEDS ORDERED: HYDROCODONE/ACETAMINOPHEN 10-325 MG TABLET PO PRN (22:03)
--- NOTE | 2019-09-03 22:09 | Operative Report ---
Nonrecallable Operative Report DATE OF SURGERY: 09/03/19 PREOPERATIVE DIAGNOSIS: Abscess of the perineum POSTOPERATIVE DIAGNOSIS: Same as above OPERATION: Incision and drainage of perineal abscess SURGEON: TOMASZ CHICAS ANESTHESIA: Local COMPLICATIONS: None apparent ESTIMATED BLOOD LOSS: Minimal PROCEDURE: Drains/implants: 4 x 4 gauze. Procedure in detail: After informed consent was obtained, the patient was laid in the prone position in the hospital room. The area of the perineum was prepped and draped in a normal sterile fashion. 1% lidocaine was infiltrated into the skin of the perineum. After adequate anesthesia was obtained, an incision was created with an 11 blade scalpel. A large amount of purulent material was then encountered. This was cleaned from the area vigorously. A small ellipse of tissue was removed, to facilitate drainage. The wound was then packed with a gauze, a dressing was placed, and the procedure was concluded. All sponge, instrument, and needle counts were correct. Condition: Stable.
[2019-09-03] MEDS ORDERED: IBUPROFEN 800 MG TABLET PO ONE (22:15)
[2019-09-04] MEDS: PIPERACILLIN SODIUM/TAZOBACTAM 3.375 GM in NORMAL SALINE 100 ML IV SCH ×3 (00:40→11:29)
[2019-09-04] MEDS ORDERED: IBUPROFEN 800 MG TABLET ONE (00:45)
[2019-09-04 08:25] VITALS: BP 150/91
[2019-09-04] MEDS: IBUPROFEN 800 MG TABLET PO SCH ×2 (09:01→12:08)
[2019-09-04] MEDS ORDERED: CHOLECALCIFEROL (D3) 1,000 UNIT (25 MCG) TABLET PO SCH (10:00)
[2019-09-04] MEDS ORDERED: AMLODIPINE BESYLATE 2.5 MG TABLET PO SCH (10:00)
[2019-09-04] MEDS ORDERED: (PENDING PHARMACY ID) (Cholecalciferol (Vitamin D3) [Vitamin D3] 2,000 UNIT) PO SCH (10:00)
--- NOTE | 2019-09-04 11:57 | PDOC DISCHARGE SUMMARY ---
General - Admit/Disc Date/PCP Admission Date/Primary Care Provider: 09/02/19 12:49 EDUARDO DHILLON Discharge Date: 09/04/19 - Discharge Diagnosis Final Diagnosis: Abscess of the left perineal area History of dizziness - Additional Information Resuscitation Status: Full Code Discharge Diet: As Tolerated Discharge Activity: Activity As Tolerated, Balance Activity w/Rest Referrals: TOMASZ WHITEHEAD MD [ACTIVE STAFF] - 09/09/19 11:00 am Home Medications: Pravastatin Sodium [Pravachol] 40 mg PO QPM@209911/01/11 Warfarin Sodium [Coumadin] 10 mg PO QPM@209911/01/11 Cholecalciferol (Vitamin D3) [Vitamin D3] 2,000 unit PO DAILY 08/18/17 Hydrocodone/Acetaminophen [[place] 5-325 mg Tablet] 1 tab PO Q12HP PRN 09/02/19 History of Present Illiness History of Present Illness: NICO SHIPLEY is a 74 year old male he started noticing small cyst along his left perianal area about 3 weeks ago and this is been getting more painful and more prominent to the point where he has some more discomfort when he sits down. However in the past 2days complain of some dizziness. He takes Coumadin to make his blood thinner per his primary physician's order. Denies any fever no chills. Hospital Course Hospital Course: Patient was admitted on 09/02/2019 for an abscess along the left perineal perianal area as well as dizziness spells. Patient was seen by hospitalist and ordered MRI but MRI machine is broken. Abscess site was then drained at bedside under local anesthesia by Dr. Whitehead on 09/03/2019. Today the packing was removed and the wound looks good and without any discharge. Patient started on sitz bath's to be continued at home 2-3 times a day for about a week. Patient to be followed up in the surgical clinic in 1 to 2 weeks. Physical Exam Vital Signs: Temp Pulse Resp BP Pulse Ox 97.3 F 77 16 150/91 H 98 09/04/19 10:39 09/04/19 10:39 09/04/19 10:39 09/04/19 10:39 09/04/19 10:39 Intake & Output 09/03/19 09/04/19 09/05/19 06:59 06:59 06:59 Intake Total 2300 1620 1000 Output Total 200 650 Balance 2100 970 1000 Weight 85.8 kg 85.8 kg Exam: Prominence along the left perineal area near the rectal side about 3 x 3cm. Results Laboratory Results: WBC 12.7 10^3/uL (4.0-10.5) H 09/03/19 04:09 RBC 4.73 10^6/uL (4.35-5.55) 09/03/19 04:09 Hgb 14.7 g/dL (13.5-17.0) D 09/03/19 04:09 Hct 43.1 % (37.9-51.0) 09/03/19 04:09 MCV 91 fl (80-97) 09/03/19 04:09 MCH 31.1 pg (27.0-33.4) 09/03/19 04:09 MCHC 34.2 g/dL (32.0-36.0) 09/03/19 04:09 RDW 13.7 % (11.5-14.0) 09/03/19 04:09 Plt Count 161 10^3/uL (150-450) 09/03/19 04:09 Lymph % (Auto) 10.7 % (13-45) L 09/03/19 04:09 [place] % (Auto) 10.3 % (3-13) 09/03/19 04:09 Eos % (Auto) 0.1 % (0-6) 09/03/19 04:09 Baso % (Auto) 0.3 % (0-2) 09/03/19 04:09 Absolute Neuts (auto) 10.0 10^3/uL (1.7-8.2) H 09/03/19 04:09 Absolute Lymphs (auto) 1.4 10^3/uL (0.5-4.7) 09/03/19 04:09 Absolute Monos (auto) 1.3 10^3/uL (0.1-1.4) 09/03/19 04:09 Absolute Eos (auto) 0.0 10^3/uL (0.0-0.6) 09/03/19 04:09 Absolute Basos (auto) 0.0 10^3/uL (0.0-0.2) 09/03/19 04:09 Seg Neutrophils % 78.6 % (42-78) H 09/03/19 04:09 PT 21.1 SEC (11.4-15.4) H 09/03/19 04:09 INR 1.80 09/03/19 04:09 Sodium 138.7 mmol/L (137-145) 09/02/19 09:45 Potassium 4.5 mmol/L (3.6-5.0) 09/02/19 09:45 Chloride 101 mmol/L (98-107) 09/02/19 09:45 Carbon Dioxide 31 mmol/L (22-30) H 09/02/19 09:45 Anion Gap 7 (5-19) 09/02/19 09:45 BUN 14 mg/dL (7-20) 09/02/19 09:45 Creatinine 0.81 mg/dL (0.52-1.25) 09/02/19 09:45 Est GFR ( Amer) > 60 (>60) 09/02/19 09:45 Est GFR (MDRD) Non-Af > 60 (>60) 09/02/19 09:45 Glucose 116 mg/dL (75-110) H 09/02/19 09:45 POC Glucose 104 mg/dL (70-110) 09/03/19 00:38 Lactic Acid 1.4 mmol/L (0.7-2.1) 09/02/19 11:07 Calcium 10.0 mg/dL (8.4-10.2) 09/02/19 09:45 Total Bilirubin 1.0 mg/dL (0.2-1.3) 09/02/19 09:45 Direct Bilirubin 0.0 mg/dL (0.0-0.4) 09/02/19 09:45 Neonat Total Bilirubin Not Reportable 09/02/19 09:45 Neonat Direct Bilirubin Not Reportable 09/02/19 09:45 Neonat Indirect Bili Not Reportable 09/02/19 09:45 AST 30 U/L (17-59) 09/02/19 09:45 ALT 26 U/L (<50) 09/02/19 09:45 Alkaline Phosphatase 59 U/L (38-126) 09/02/19 09:45 Troponin I < 0.012 ng/mL 09/02/19 17:23 Total Protein 7.2 g/dL (6.3-8.2) 09/02/19 09:45 Albumin 4.0 g/dL (3.5-5.0) 09/02/19 09:45 Urine Color KIERSTEN 09/02/19 09:45 Urine Appearance SLIGHTLY-CLOUDY 09/02/19 09:45 Urine pH 5.0 (5.0-9.0) 09/02/19 09:45 Ur Specific [place] 1.028 09/02/19 09:45 Urine Protein 100 mg/dL (NEGATIVE) H 09/02/19 09:45 Urine Glucose (UA) NEGATIVE mg/dL (NEGATIVE) 09/02/19 09:45 Urine Ketones TRACE mg/dL (NEGATIVE) H 09/02/19 09:45 Urine Blood SMALL (NEGATIVE) H 09/02/19 09:45 Urine Nitrite (Reflex) NEGATIVE (NEGATIVE) 09/02/19 09:45 Urine Bilirubin NEGATIVE (NEGATIVE) 09/02/19 09:45 Urine Urobilinogen 2.0 mg/dL (<2.0) H 09/02/19 09:45 Leukocyte Esterase Rfl SMALL (NEGATIVE) H 09/02/19 09:45 Urine RBC (Auto) 2 /HPF 09/02/19 09:45 U Hyaline Cast (Auto) 12 /LPF 09/02/19 09:45 Urine Bacteria (Auto) TRACE /HPF 09/02/19 09:45 Urine WBC (Reflex) 14 /HPF 09/02/19 09:45 Squamous Epi Cells Auto 1 /HPF 09/02/19 09:45 Urine Mucus (Auto) MANY /LPF 09/02/19 09:45 Urine Ascorbic Acid NEGATIVE (NEGATIVE) 09/02/19 09:45 09/02/19 17:23 Troponin I < 0.012 Impressions: Chest X-Ray 09/02/19 09:38 IMPRESSION: NO ACUTE RADIOGRAPHIC FINDING IN THE CHEST. Head MRI 09/03/19 00:00 IMPRESSION: Unremarkable MRI of the brain.
--- NOTE | 2019-09-04 12:44 | PDOC DISCHARGE SUMMARY ---
General - Admit/Disc Date/PCP Admission Date/Primary Care Provider: 09/02/19 12:49 EDUARDO DHILLON Discharge Date: 09/04/19 - Discharge Diagnosis Final Diagnosis: Abscess left perineal area 2 urinary tract infection E. coli sensitive to cefazolin - Assessment Summary: I&D was done on the left perineal abscess at bedside by Dr. Whitehead on 09/02/2018. His urine was tested positive for E. coli and sensitive to cefazolin and will be given a prescription for ends Keflex 500 mg p.o. 4 times daily x10 days. - Additional Information Resuscitation Status: Full Code Discharge Diet: As Tolerated Discharge Activity: Activity As Tolerated, Balance Activity w/Rest Referrals: TOMASZ WHITEHEAD MD [ACTIVE STAFF] - 09/09/19 11:00 am Home Medications: Pravastatin Sodium [Pravachol] 40 mg PO QPM@209911/01/11 Warfarin Sodium [Coumadin] 10 mg PO QPM@209911/01/11 Cholecalciferol (Vitamin D3) [Vitamin D3] 2,000 unit PO DAILY 08/18/17 History of Present Illiness History of Present Illness: NICO SHIPLEY is a 74 year old male he started noticing small cyst along his left perianal area about 3 weeks ago and this is been getting more painful and more prominent to the point where he has some more discomfort when he sits down. However in the past 2days complain of some dizziness. He takes Coumadin to make his blood thinner per his primary physician's order. Denies any fever no chills. Hospital Course Hospital Course: Patient was admitted on 09/02/2019 for an abscess along the left perineal perianal area as well as dizziness spells. Patient was seen by hospitalist and ordered MRI but MRI machine is broken. Abscess site was then drained at bedside under local anesthesia by Dr. Whitehead on 09/03/2019. Today the packing was removed and the wound looks good and without any discharge. Patient started on sitz bath's to be continued at home 2-3 times a day for about a week. Patient to be followed up in the surgical clinic in 1 to 2 weeks. Physical Exam Vital Signs: Temp Pulse Resp BP Pulse Ox 97.3 F 77 16 150/91 H 98 09/04/19 10:39 09/04/19 10:39 09/04/19 10:39 09/04/19 10:39 09/04/19 10:39 Intake & Output 09/03/19 09/04/19 09/05/19 06:59 06:59 06:59 Intake Total 2300 1620 1000 Output Total 200 650 Balance 2100 970 1000 Weight 85.8 kg 85.8 kg Exam: Abscess on the left perineal area Results Laboratory Results: WBC 12.7 10^3/uL (4.0-10.5) H 09/03/19 04:09 RBC 4.73 10^6/uL (4.35-5.55) 09/03/19 04:09 Hgb 14.7 g/dL (13.5-17.0) D 09/03/19 04:09 Hct 43.1 % (37.9-51.0) 09/03/19 04:09 MCV 91 fl (80-97) 09/03/19 04:09 MCH 31.1 pg (27.0-33.4) 09/03/19 04:09 MCHC 34.2 g/dL (32.0-36.0) 09/03/19 04:09 RDW 13.7 % (11.5-14.0) 09/03/19 04:09 Plt Count 161 10^3/uL (150-450) 09/03/19 04:09 Lymph % (Auto) 10.7 % (13-45) L 09/03/19 04:09 [place] % (Auto) 10.3 % (3-13) 09/03/19 04:09 Eos % (Auto) 0.1 % (0-6) 09/03/19 04:09 Baso % (Auto) 0.3 % (0-2) 09/03/19 04:09 Absolute Neuts (auto) 10.0 10^3/uL (1.7-8.2) H 09/03/19 04:09 Absolute Lymphs (auto) 1.4 10^3/uL (0.5-4.7) 09/03/19 04:09 Absolute Monos (auto) 1.3 10^3/uL (0.1-1.4) 09/03/19 04:09 Absolute Eos (auto) 0.0 10^3/uL (0.0-0.6) 09/03/19 04:09 Absolute Basos (auto) 0.0 10^3/uL (0.0-0.2) 09/03/19 04:09 Seg Neutrophils % 78.6 % (42-78) H 09/03/19 04:09 PT 21.1 SEC (11.4-15.4) H 09/03/19 04:09 INR 1.80 09/03/19 04:09 Sodium 138.7 mmol/L (137-145) 09/02/19 09:45 Potassium 4.5 mmol/L (3.6-5.0) 09/02/19 09:45 Chloride 101 mmol/L (98-107) 09/02/19 09:45 Carbon Dioxide 31 mmol/L (22-30) H 09/02/19 09:45 Anion Gap 7 (5-19) 09/02/19 09:45 BUN 14 mg/dL (7-20) 09/02/19 09:45 Creatinine 0.81 mg/dL (0.52-1.25) 09/02/19 09:45 Est GFR ( Amer) > 60 (>60) 09/02/19 09:45 Est GFR (MDRD) Non-Af > 60 (>60) 09/02/19 09:45 Glucose 116 mg/dL (75-110) H 09/02/19 09:45 POC Glucose 104 mg/dL (70-110) 09/03/19 00:38 Lactic Acid 1.4 mmol/L (0.7-2.1) 09/02/19 11:07 Calcium 10.0 mg/dL (8.4-10.2) 09/02/19 09:45 Total Bilirubin 1.0 mg/dL (0.2-1.3) 09/02/19 09:45 Direct Bilirubin 0.0 mg/dL (0.0-0.4) 09/02/19 09:45 Neonat Total Bilirubin Not Reportable 09/02/19 09:45 Neonat Direct Bilirubin Not Reportable 09/02/19 09:45 Neonat Indirect Bili Not Reportable 09/02/19 09:45 AST 30 U/L (17-59) 09/02/19 09:45 ALT 26 U/L (<50) 09/02/19 09:45 Alkaline Phosphatase 59 U/L (38-126) 09/02/19 09:45 Troponin I < 0.012 ng/mL 09/02/19 17:23 Total Protein 7.2 g/dL (6.3-8.2) 09/02/19 09:45 Albumin 4.0 g/dL (3.5-5.0) 09/02/19 09:45 Urine Color KIERSTEN 09/02/19 09:45 Urine Appearance SLIGHTLY-CLOUDY 09/02/19 09:45 Urine pH 5.0 (5.0-9.0) 09/02/19 09:45 Ur Specific [place] 1.028 09/02/19 09:45 Urine Protein 100 mg/dL (NEGATIVE) H 09/02/19 09:45 Urine Glucose (UA) NEGATIVE mg/dL (NEGATIVE) 09/02/19 09:45 Urine Ketones TRACE mg/dL (NEGATIVE) H 09/02/19 09:45 Urine Blood SMALL (NEGATIVE) H 09/02/19 09:45 Urine Nitrite (Reflex) NEGATIVE (NEGATIVE) 09/02/19 09:45 Urine Bilirubin NEGATIVE (NEGATIVE) 09/02/19 09:45 Urine Urobilinogen 2.0 mg/dL (<2.0) H 09/02/19 09:45 Leukocyte Esterase Rfl SMALL (NEGATIVE) H 09/02/19 09:45 Urine RBC (Auto) 2 /HPF 09/02/19 09:45 U Hyaline Cast (Auto) 12 /LPF 09/02/19 09:45 Urine Bacteria (Auto) TRACE /HPF 09/02/19 09:45 Urine WBC (Reflex) 14 /HPF 09/02/19 09:45 Squamous Epi Cells Auto 1 /HPF 09/02/19 09:45 Urine Mucus (Auto) MANY /LPF 09/02/19 09:45 Urine Ascorbic Acid NEGATIVE (NEGATIVE) 09/02/19 09:45 09/02/19 17:23 Troponin I < 0.012 Impressions: Chest X-Ray 09/02/19 09:38 IMPRESSION: NO ACUTE RADIOGRAPHIC FINDING IN THE CHEST. Head MRI 09/03/19 00:00 IMPRESSION: Unremarkable MRI of the brain. Plan Health Concerns: Urinary tract infectionE. coli sensitive to cefazolin Abscess of the left perineal area Dizziness Plan of Treatment: Patient to do sitz bath's 3 times a day for a week and given a prescription for Keflex 500 mg 4 times daily x10 days Goals: Heal the wound and also with a urinary tract infection
== END 2019-09-04 12:19 | disposition home or self-care (01) ==
LOC: ER 08:46 → EH 12:49 → 4N 15:57
PROVIDERS: ATTEND Surgery
DX: L02.215 Cutaneous abscess of perineum (principal); N30.00 Acute cystitis without hematuria; B96.20 Unspecified Escherichia coli [E. coli] as the cause of diseases classified elsewhere; R42 Dizziness and giddiness; M19.90 Unspecified osteoarthritis, unspecified site; F17.210 Nicotine dependence, cigarettes, uncomplicated; E78.5 Hyperlipidemia, unspecified; H53.9 Unspecified visual disturbance; H55.00 Unspecified nystagmus; R94.31 Abnormal electrocardiogram [ECG] [EKG]; I48.91 Unspecified atrial fibrillation; R11.2 Nausea with vomiting, unspecified; R05 Cough; I10 Essential (primary) hypertension; I25.10 Atherosclerotic heart disease of native coronary artery without angina pectoris; Z79.899 Other long term (current) drug therapy; Z79.01 Long term (current) use of anticoagulants; Z85.46 Personal history of malignant neoplasm of prostate; Z90.79 Acquired absence of other genital organ(s)
CPT/HCPCS: 93005; 99285; 96361; 96374; 36415 ×2; 87040; 87086; 82962; 83605; 85025 ×2; 85610 ×2; 87088; 80053; 81001; 84484; 87186; 70551; 71046; 93010; 10060; G0378 ×4; A9270 ×4; J7121 ×2; J7050 ×3; J7030; J2543 ×3